=== PATIENT | male | born 1965 | race Caucasian/White ===

== ENCOUNTER 2016-11-24 06:46 | Emergency (ER) | payer SELFPAY ==
[~2016-11-24] VITALS: Ht 177.8 cm; Wt 79.0 kg
[~2016-11-24 06:46] MED LIST: AUGMENTIN500TAB PO; AUGMENTIN875TAB PO; BACTRIM DS1 TAB PO; CARAFATE PO; CELEBREX100 M1 PO; FLEXERIL PO; FLEXERIL5 MG PO; FLONASE NASAL50 MCG; GABAPENTIN300 M2 PO; GABAPENTIN800 MG PO; GLIPIZIDE5 MG PO; HYDROCHLOROT12.5 MG PO; LACTULOSE PO; LASIX 20 MG TAB20 MG PO; LEVAQUIN750 MG PO; LISINOPRIL20 M1 PO; LOVASTATIN10 M1 PO; MECLIZINE25 MG PO; METFORMIN500 M1 PO; MUCINEX600 MG PO; MUPIROCIN21; NAFTIN; NAPROXEN375 MG PO; OSENI PO; PERCOCET1 TA2 PO; PREDNISONE10 MG PO; PRILOSEC40 MG PO; ROPINIROLE1 MG PO; TESSALON PER100 MG PO; ZITHROMAX250 MG PO; ZOFRAN ODT4 MG PO; [UNRECOGNIZED DRUG - OTHER] PO
[2016-11-24] MEDS ORDERED: CELEBREX100 M1 PO (07:02)
[2016-11-24] MEDS ORDERED: FLEXERIL5 MG PO (07:03)
[2016-11-24 08:15] LABS: HEMATOCRIT 33.7 % (39.0-50.0); IMMATURE GRANULOCYTES 0.2 % (0.0-1.0); MEAN CELL VOLUME 94.7 fL CALC (80.0-100.0); MEAN CORPUSCULAR HGB 33.7 pG CALC (26.0-32.0); MEAN CORPUSCULAR HGB CONC 35.6 g/L CALC (32.0-36.0); NEUT# 3.57 thou/uL (1.82-7.42); RED BLOOD COUNT 3.56 mill/uL (4.70-6.10); RED CELL DISTRI WIDTH 14.1 % (11.5-15.5)
[2016-11-24 08:20] LABS: ALBUMIN 3.4 g/dL (3.2-5.0); ALKALINE PHOSPHATASE 237 u/l (38-126); ANION GAP 12 (6-22 (CALC)); BILIRUBIN, TOTAL 1.3 mg/dL (0.0-1.4); BUN 15 mg/dL (9-20); BUN/CREATININE RATIO 22 (12-20 (CALC)); CALCIUM 9.5 mg/dL (8.4-10.2); CARBON DIOXIDE 27 mmol/l (22-30); CHLORIDE 105 mmol/l (95-108); CREATININE 0.7 mg/dL (0.7-1.3); GFR > 60 ML/MIN (>=60 (CALC)); GFR FOR AFR.AMER. > 60 ML/MIN (>=60 (CALC)); GLUCOSE 206 mg/dL (75-110); POTASSIUM 3.7 mmol/l (3.5-5.1); SGOT/AST 238 u/l (17-59); SGPT/ALT 201 u/l (21-72); SODIUM 141 mmol/l (137-146); TOTAL PROTEIN 8.3 g/dL (6.3-8.2)
[2016-11-24 08:24] LABS: INTERNATIONAL NORMALIZED RATIO 1.1 RATIO (0.7-1.3)
[2016-11-24 08:32] LABS: MYOGLOBIN 33 ng/mL (0 - 121)
[2016-11-24] MEDS ORDERED: AUGMENTIN500TAB PO (09:59)
[2016-11-24 10:03] VITALS: BP 150/78
== END 2016-11-24 10:31 | disposition home or self-care (01) | DRG 603 ==
LOC: ED 06:46
PROVIDERS: Emergency Medicine
DX: L03.116 Cellulitis of left lower limb (principal); L03.115 Cellulitis of right lower limb

== ENCOUNTER 2017-01-13 11:04 | Inpatient (IN) | payer SELFPAY ==
[~2017-01-13] VITALS: Ht 177.8 cm; Wt 79.2 kg
[2017-01-13 11:56] LABS: HEMATOCRIT 34.2 % (39.0-50.0); IMMATURE GRANULOCYTES 0.4 % (0.0-1.0); MEAN CELL VOLUME 96.6 fL CALC (80.0-100.0); MEAN CORPUSCULAR HGB 33.9 pG CALC (26.0-32.0); MEAN CORPUSCULAR HGB CONC 35.1 g/L CALC (32.0-36.0); NEUT# 4.63 thou/uL (1.82-7.42); RED BLOOD COUNT 3.54 mill/uL (4.70-6.10); RED CELL DISTRI WIDTH 14.4 % (11.5-15.5)
[2017-01-13 12:06] LABS: ALBUMIN 3.1 g/dL (3.2-5.0); ALKALINE PHOSPHATASE 128 u/l (38-126); ANION GAP 10 (6-22 (CALC)); BUN 13 mg/dL (9-20); BUN/CREATININE RATIO 23 (12-20 (CALC)); CALCIUM 8.3 mg/dL (8.4-10.2); CARBON DIOXIDE 27 mmol/l (22-30); CHLORIDE 104 mmol/l (95-108); CREATININE 0.6 mg/dL (0.7-1.3); GFR > 60 ML/MIN (>=60 (CALC)); GFR FOR AFR.AMER. > 60 ML/MIN (>=60 (CALC)); GLUCOSE 180 mg/dL (75-110); POTASSIUM 4.4 mmol/l (3.5-5.1); SGOT/AST 179 u/l (17-59); SGPT/ALT 158 u/l (21-72); SODIUM 137 mmol/l (137-146); TOTAL PROTEIN 7.4 g/dL (6.3-8.2)
[2017-01-13 13:41] LABS: URINE BILIRUBIN - DIPSTICK NEGATIVE (NEGATIVE); URINE BLOOD DIPSTICK NEGATIVE (NEGATIVE); URINE CLARITY CLEAR; URINE COLOR YELLOW; URINE GLUCOSE - DIPSTICK NEGATIVE (NEGATIVE); URINE KETONE NEGATIVE (NEGATIVE); URINE LEUK ESTERASE NEGATIVE (NEGATIVE); URINE NITRITE - DIPSTICK NEGATIVE (Negative); URINE PH 5.5 (4.5-8.0); URINE PROTEIN - DIPSTICK NEGATIVE (NEG-TRACE)
[2017-01-13 16:00] VITALS: BP 132/68
[2017-01-13 20:25] VITALS: BP 145/65
[2017-01-14 00:42] VITALS: BP 122/67
[2017-01-14 04:35] VITALS: BP 115/61
[2017-01-14 06:10] LABS: HEMATOCRIT 31.8 % (39.0-50.0); HEMOGLOBIN 11.2 g/dl (14.0-18.0); IMMATURE GRANULOCYTES 0.4 % (0.0-1.0); MEAN CELL VOLUME 95.5 fL CALC (80.0-100.0); MEAN CORPUSCULAR HGB 33.6 pG CALC (26.0-32.0); MEAN CORPUSCULAR HGB CONC 35.2 g/L CALC (32.0-36.0); NEUT# 3.17 thou/uL (1.82-7.42); RED BLOOD COUNT 3.33 mill/uL (4.70-6.10); RED CELL DISTRI WIDTH 14.1 % (11.5-15.5)
[2017-01-14 06:31] LABS: ANION GAP 9 (6-22 (CALC)); BUN 10 mg/dL (9-20); BUN/CREATININE RATIO 19 (12-20 (CALC)); CALCIUM 8.1 mg/dL (8.4-10.2); CALCULATED LDLCHOLESTEROL 64 mg/dL (62-129 (CALC)); CARBON DIOXIDE 26 mmol/l (22-30); CHLORIDE 107 mmol/l (95-108); CHOLESTEROL HDL RATIO 3.2 (<4.4 (CALC)); CREATININE 0.6 mg/dL (0.7-1.3); GFR > 60 ML/MIN (>=60 (CALC)); GFR FOR AFR.AMER. > 60 ML/MIN (>=60 (CALC)); GLUCOSE 86 mg/dL (75-110); HDL CHOLESTEROL 37 mg/dL (>=40); MAGNESIUM 1.5 mg/dL (1.6-2.3); POTASSIUM 3.3 mmol/l (3.5-5.1); SODIUM 138 mmol/l (137-146); TOTAL CHOLESTEROL 118 mg/dl (0-199); TOTAL TRIGLYCERIDES 84 mg/dl (30-149); VLDL CHOLESTROL 17 mg/dl (8-62 (CALC))
[2017-01-14 08:54] VITALS: BP 125/75
[2017-01-14 16:32] VITALS: BP 114/66
[2017-01-14 19:40] VITALS: BP 108/64
[2017-01-15] VITALS (7 sets, daily range): BP systolic 101–121; BP diastolic 62–78
[2017-01-15 06:12] LABS: ANION GAP 9 (6-22 (CALC)); BUN 11 mg/dL (9-20); BUN/CREATININE RATIO 21 (12-20 (CALC)); CALCIUM 8.1 mg/dL (8.4-10.2); CARBON DIOXIDE 27 mmol/l (22-30); CHLORIDE 105 mmol/l (95-108); CREATININE 0.5 mg/dL (0.7-1.3); GFR > 60 ML/MIN (>=60 (CALC)); GFR FOR AFR.AMER. > 60 ML/MIN (>=60 (CALC)); GLUCOSE 129 mg/dL (75-110); MAGNESIUM 1.6 mg/dL (1.6-2.3); POTASSIUM 4.2 mmol/l (3.5-5.1); SODIUM 138 mmol/l (137-146)
[2017-01-16 03:50] VITALS: BP 109/70
[2017-01-16 07:42] VITALS: BP 87/52
[2017-01-16 07:57] VITALS: BP 97/56
[2017-01-16] MEDS ORDERED: MINOCYCLINE100 MG PO (10:30)
[2017-01-16] MEDS ORDERED: LEVAQUIN500 MG PO (10:30)
[2017-01-16 11:51] VITALS: BP 119/75
== END 2017-01-16 13:01 | disposition home or self-care (01) | DRG 638 ==
LOC: ENPENDDIS → ED 11:04 → ED-I 13:54 → ED 14:29 → MS2 14:30
PROVIDERS: Emergency Medicine; ADMIT Internal Medicine; ATTEND Internal Medicine
DX: E11.628 Type 2 diabetes mellitus with other skin complications (principal); L03.116 Cellulitis of left lower limb; L97.929 Non-pressure chronic ulcer of unspecified part of left lower leg with unspecified severity; E11.40 Type 2 diabetes mellitus with diabetic neuropathy, unspecified; I83.229 Varicose veins of left lower extremity with both ulcer of unspecified site and inflammation; I10 Essential (primary) hypertension; F17.210 Nicotine dependence, cigarettes, uncomplicated; B19.20 Unspecified viral hepatitis C without hepatic coma; E87.70 Fluid overload, unspecified; B96.5 Pseudomonas (aeruginosa) (mallei) (pseudomallei) as the cause of diseases classified elsewhere; Z79.84 Long term (current) use of oral hypoglycemic drugs
CPT/HCPCS: J3370

== ENCOUNTER 2017-02-12 11:05 | Inpatient (IN) | payer OTHER ==
[~2017-02-12] VITALS: Ht 177.8 cm; Wt 83.2 kg
[~2017-02-12 11:05] MED LIST changes: +LEVAQUIN500 MG PO; +MINOCYCLINE100 MG PO
[2017-02-12 11:38] LABS: HEMATOCRIT 33.5 % (39.0-50.0); HEMOGLOBIN 11.7 g/dl (14.0-18.0); IMMATURE GRANULOCYTES 0.4 % (0.0-1.0); MEAN CELL VOLUME 95.4 fL CALC (80.0-100.0); MEAN CORPUSCULAR HGB 33.3 pG CALC (26.0-32.0); MEAN CORPUSCULAR HGB CONC 34.9 g/L CALC (32.0-36.0); NEUT# 5.8 thou/uL (1.82-7.42); RED BLOOD COUNT 3.51 mill/uL (4.70-6.10); RED CELL DISTRI WIDTH 14.5 % (11.5-15.5)
[2017-02-12 11:55] LABS: ACT PARTIAL THROMBO TIME 33.1 SECONDS (20.0-32.5); INTERNATIONAL NORMALIZED RATIO 1.3 RATIO (0.7-1.3); PROTHROMBIN TIME 14.5 SECONDS (9.0-12.5)
[2017-02-12 11:56] LABS: ALBUMIN 3.1 g/dL (3.2-5.0); ALKALINE PHOSPHATASE 88 u/l (38-126); ANION GAP 12 (6-22 (CALC)); BUN 16 mg/dL (9-20); BUN/CREATININE RATIO 20 (12-20 (CALC)); CALCIUM 8.5 mg/dL (8.4-10.2); CARBON DIOXIDE 24 mmol/l (22-30); CHLORIDE 103 mmol/l (95-108); CREATININE 0.8 mg/dL (0.7-1.3); GFR > 60 ML/MIN (>=60 (CALC)); GFR FOR AFR.AMER. > 60 ML/MIN (>=60 (CALC)); GLUCOSE 155 mg/dL (75-110); SGOT/AST 153 u/l (17-59); SGPT/ALT 128 u/l (21-72); SODIUM 134 mmol/l (137-146); TOTAL PROTEIN 7.4 g/dL (6.3-8.2)
[2017-02-12 12:04] LABS: MYOGLOBIN 281 ng/mL (0 - 121)
[2017-02-12] MEDS ORDERED: OXYCODONE HCL10 MG PO (12:11)
[2017-02-12] MEDS ORDERED: COREG6.25 MG PO (12:12)
[2017-02-12] MEDS ORDERED: LASIX 40 MG TAB40 MG PO (12:13)
[2017-02-12] MEDS ORDERED: NEURONTIN400 MG PO (12:14)
[2017-02-12] MEDS ORDERED: LISINOPRIL10 M1 PO (12:14)
[2017-02-12] MEDS ORDERED: METFORMIN500 M2 PO (12:15)
[2017-02-12] MEDS ORDERED: ROPINIROLE0.5 MG PO (12:15)
[2017-02-12 14:52] LABS: URINE BILIRUBIN - DIPSTICK NEGATIVE (NEGATIVE); URINE BLOOD DIPSTICK NEGATIVE (NEGATIVE); URINE CLARITY CLEAR; URINE COLOR YELLOW; URINE GLUCOSE - DIPSTICK NEGATIVE (NEGATIVE); URINE KETONE NEGATIVE (NEGATIVE); URINE LEUK ESTERASE NEGATIVE (NEGATIVE); URINE NITRITE - DIPSTICK NEGATIVE (Negative); URINE PH 5.5 (4.5-8.0); URINE PROTEIN - DIPSTICK NEGATIVE (NEG-TRACE)
[2017-02-12 15:33] VITALS: BP 130/54
[2017-02-12 19:47] VITALS: BP 111/57
[2017-02-13 00:40] VITALS: BP 128/72
[2017-02-13 04:25] VITALS: BP 141/62
[2017-02-13 07:09] LABS: HEMATOCRIT 31.5 % (39.0-50.0); IMMATURE GRANULOCYTES 0.8 % (0.0-1.0); MEAN CELL VOLUME 96.3 fL CALC (80.0-100.0); MEAN CORPUSCULAR HGB 33.6 pG CALC (26.0-32.0); MEAN CORPUSCULAR HGB CONC 34.9 g/L CALC (32.0-36.0); NEUT# 6.53 thou/uL (1.82-7.42); RED BLOOD COUNT 3.27 mill/uL (4.70-6.10); RED CELL DISTRI WIDTH 14.6 % (11.5-15.5)
[2017-02-13 07:28] LABS: ALBUMIN 2.9 g/dL (3.2-5.0); ALKALINE PHOSPHATASE 104 u/l (38-126); ANION GAP 11 (6-22 (CALC)); BILIRUBIN, TOTAL 2.4 mg/dL (0.0-1.4); BUN 18 mg/dL (9-20); BUN/CREATININE RATIO 26 (12-20 (CALC)); CALCIUM 8.2 mg/dL (8.4-10.2); CARBON DIOXIDE 26 mmol/l (22-30); CHLORIDE 105 mmol/l (95-108); CREATININE 0.7 mg/dL (0.7-1.3); GFR > 60 ML/MIN (>=60 (CALC)); GFR FOR AFR.AMER. > 60 ML/MIN (>=60 (CALC)); GLUCOSE 151 mg/dL (75-110); POTASSIUM 3.5 mmol/l (3.5-5.1); SGOT/AST 105 u/l (17-59); SGPT/ALT 106 u/l (21-72); SODIUM 139 mmol/l (137-146)
[2017-02-13 07:36] LABS: INTERNATIONAL NORMALIZED RATIO 1.3 RATIO (0.7-1.3); PROTHROMBIN TIME 14.6 SECONDS (9.0-12.5)
[2017-02-13 08:25] VITALS: BP 139/64
[2017-02-13 11:14] VITALS: BP 129/68
[2017-02-13 14:25] VITALS: BP 119/68
[2017-02-13 19:30] VITALS: BP 127/65
[2017-02-14 00:15] VITALS: BP 121/66
[2017-02-14 04:45] VITALS: BP 119/69
[2017-02-14 05:52] LABS: HEMATOCRIT 32.8 % (39.0-50.0); HEMOGLOBIN 11.2 g/dl (14.0-18.0); IMMATURE GRANULOCYTES 0.8 % (0.0-1.0); MEAN CELL VOLUME 98.2 fL CALC (80.0-100.0); MEAN CORPUSCULAR HGB 33.5 pG CALC (26.0-32.0); MEAN CORPUSCULAR HGB CONC 34.1 g/L CALC (32.0-36.0); NEUT# 4.39 thou/uL (1.82-7.42); RED BLOOD COUNT 3.34 mill/uL (4.70-6.10); RED CELL DISTRI WIDTH 14.3 % (11.5-15.5)
[2017-02-14 06:14] LABS: ALBUMIN 2.8 g/dL (3.2-5.0); ALKALINE PHOSPHATASE 85 u/l (38-126); ANION GAP 11 (6-22 (CALC)); BILIRUBIN, TOTAL 1.5 mg/dL (0.0-1.4); BUN 16 mg/dL (9-20); BUN/CREATININE RATIO 22 (12-20 (CALC)); CARBON DIOXIDE 28 mmol/l (22-30); CHLORIDE 103 mmol/l (95-108); CREATININE 0.7 mg/dL (0.7-1.3); GFR > 60 ML/MIN (>=60 (CALC)); GFR FOR AFR.AMER. > 60 ML/MIN (>=60 (CALC)); GLUCOSE 139 mg/dL (75-110); MAGNESIUM 1.5 mg/dL (1.6-2.3); POTASSIUM 3.3 mmol/l (3.5-5.1); SGOT/AST 79 u/l (17-59); SGPT/ALT 93 u/l (21-72); SODIUM 139 mmol/l (137-146); TOTAL PROTEIN 7.2 g/dL (6.3-8.2)
[2017-02-14 08:05] VITALS: BP 127/68
[2017-02-14 10:26] VITALS: BP 102/53
[2017-02-14 14:48] VITALS: BP 102/53; BP 120/74
[2017-02-14 19:15] VITALS: BP 128/65
[2017-02-15] VITALS (7 sets, daily range): BP systolic 102–130; BP diastolic 51–70
[2017-02-15 05:26] LABS: HEMATOCRIT 30.6 % (39.0-50.0); HEMOGLOBIN 10.6 g/dl (14.0-18.0); IMMATURE GRANULOCYTES 1.3 % (0.0-1.0); MEAN CELL VOLUME 96.2 fL CALC (80.0-100.0); MEAN CORPUSCULAR HGB 33.3 pG CALC (26.0-32.0); MEAN CORPUSCULAR HGB CONC 34.6 g/L CALC (32.0-36.0); NEUT# 2.61 thou/uL (1.82-7.42); RED BLOOD COUNT 3.18 mill/uL (4.70-6.10)
[2017-02-15 05:37] LABS: ANION GAP 11 (6-22 (CALC)); BUN 14 mg/dL (9-20); BUN/CREATININE RATIO 21 (12-20 (CALC)); CALCIUM 7.8 mg/dL (8.4-10.2); CARBON DIOXIDE 27 mmol/l (22-30); CHLORIDE 101 mmol/l (95-108); CREATININE 0.7 mg/dL (0.7-1.3); GFR > 60 ML/MIN (>=60 (CALC)); GFR FOR AFR.AMER. > 60 ML/MIN (>=60 (CALC)); GLUCOSE 129 mg/dL (75-110); POTASSIUM 3.7 mmol/l (3.5-5.1); SODIUM 135 mmol/l (137-146)
[2017-02-16 00:50] VITALS: BP 116/57
[2017-02-16 03:05] VITALS: BP 106/49
[2017-02-16 08:13] VITALS: BP 113/64
[2017-02-16 11:02] VITALS: BP 117/68
[2017-02-16] MEDS ORDERED: LASIX 40 MG TAB40 MG PO (12:00)
[2017-02-16] MEDS ORDERED: DAPTOMYCIN500 MG IV (12:00)
[2017-02-16] MEDS ORDERED: ALDACTONE50 MG PO (12:00)
[2017-02-16] MEDS ORDERED: CIPROFLOXACIN250 MG PO (12:01)
[2017-02-16] MEDS ORDERED: METRONIDAZOL500 MG PO (12:01)
== END 2017-02-16 15:20 | disposition home health service (06) | DRG 602 ==
LOC: ENPENDDIS → ED 11:05 → ED-I 12:25 → ED 13:16 → MS2 13:17
PROVIDERS: Emergency Medicine; ADMIT Internal Medicine; ATTEND Internal Medicine
DX: L03.116 Cellulitis of left lower limb (principal); E43 Unspecified severe protein-calorie malnutrition; I50.33 Acute on chronic diastolic (congestive) heart failure; R18.8 Other ascites; E83.42 Hypomagnesemia; I11.0 Hypertensive heart disease with heart failure; L03.115 Cellulitis of right lower limb; G89.29 Other chronic pain; M54.9 Dorsalgia, unspecified; F17.210 Nicotine dependence, cigarettes, uncomplicated; I83.12 Varicose veins of left lower extremity with inflammation; I83.11 Varicose veins of right lower extremity with inflammation; E11.9 Type 2 diabetes mellitus without complications; B18.2 Chronic viral hepatitis C; I34.0 Nonrheumatic mitral (valve) insufficiency; Z68.26 Body mass index [BMI] 26.0-26.9, adult; Z79.84 Long term (current) use of oral hypoglycemic drugs
CPT/HCPCS: J1650; J3370

== ENCOUNTER 2017-04-23 20:55 | Emergency (ER) | payer OTHER ==
[~2017-04-23] VITALS: Ht 177.8 cm; Wt 77.0 kg
[~2017-04-23 20:55] MED LIST changes: +ALDACTONE50 MG PO; +CIPROFLOXACIN250 MG PO; +COREG6.25 MG PO; +DAPTOMYCIN500 MG IV; +LASIX 40 MG TAB40 MG PO; +LISINOPRIL10 M1 PO; +METFORMIN500 M2 PO; +METRONIDAZOL500 MG PO; +NEURONTIN400 MG PO; +OXYCODONE HCL10 MG PO; +ROPINIROLE0.5 MG PO
[2017-04-23] MEDS ORDERED: PERCOCET1 TA2 PO (23:23)
[2017-04-23] MEDS ORDERED: BACTRIM DS1 TAB PO (23:23)
[2017-04-24 00:45] VITALS: BP 132/64
== END 2017-04-24 00:45 | disposition home or self-care (01) | DRG 605 ==
LOC: ED 20:55
DX: S81.802A Unspecified open wound, left lower leg, initial encounter (principal); S81.801A Unspecified open wound, right lower leg, initial encounter; M79.604 Pain in right leg; M79.605 Pain in left leg

== ENCOUNTER 2017-05-04 10:20 | Emergency (ER) | payer OTHER ==
[~2017-05-04] VITALS: Ht 177.8 cm; Wt 79.0 kg
[2017-05-04 11:58] LABS: ALBUMIN 2.9 g/dL (3.2-5.0); ALKALINE PHOSPHATASE 251 u/l (38-126); ANION GAP 11 (6-22 (CALC)); BILIRUBIN, TOTAL 1.6 mg/dL (0.0-1.4); BUN 12 mg/dL (9-20); BUN/CREATININE RATIO 22 (12-20 (CALC)); CALCIUM 8.6 mg/dL (8.4-10.2); CARBON DIOXIDE 25 mmol/l (22-30); CHLORIDE 103 mmol/l (95-108); CREATININE 0.5 mg/dL (0.7-1.3); GFR > 60 ML/MIN (>=60 (CALC)); GFR FOR AFR.AMER. > 60 ML/MIN (>=60 (CALC)); GLUCOSE 256 mg/dL (75-110); POTASSIUM 3.7 mmol/l (3.5-5.1); SGOT/AST 248 u/l (17-59); SGPT/ALT 172 u/l (21-72); SODIUM 136 mmol/l (137-146); TOTAL PROTEIN 7.9 g/dL (6.3-8.2)
[2017-05-04 12:14] LABS: HEMATOCRIT 31.2 % (39.0-50.0); IMMATURE GRANULOCYTES 0.5 % (0.0-1.0); MEAN CELL VOLUME 95.1 fL CALC (80.0-100.0); MEAN CORPUSCULAR HGB 33.5 pG CALC (26.0-32.0); MEAN CORPUSCULAR HGB CONC 35.3 g/L CALC (32.0-36.0); NEUT# 2.51 thou/uL (1.82-7.42); RED BLOOD COUNT 3.28 mill/uL (4.70-6.10); RED CELL DISTRI WIDTH 14.2 % (11.5-15.5)
[2017-05-04] MEDS ORDERED: ULTRAM50 M1 PO (12:15)
[2017-05-04 12:22] VITALS: BP 126/81
== END 2017-05-04 12:42 | disposition home or self-care (01) | DRG 93 ==
LOC: ED 10:20
PROVIDERS: Emergency Medicine
DX: G89.29 Other chronic pain (principal); M79.604 Pain in right leg; M79.605 Pain in left leg; R22.43 Localized swelling, mass and lump, lower limb, bilateral

== ENCOUNTER 2017-05-10 23:05 | Emergency (ER) | payer OTHER ==
[~2017-05-10] VITALS: Ht 177.8 cm; Wt 79.5 kg
[~2017-05-10 23:05] MED LIST changes: +ULTRAM50 M1 PO
[2017-05-11 00:38] LABS: HEMATOCRIT 30.1 % (39.0-50.0); HEMOGLOBIN 10.6 g/dl (14.0-18.0); IMMATURE GRANULOCYTES 0.4 % (0.0-1.0); MEAN CELL VOLUME 95.6 fL CALC (80.0-100.0); MEAN CORPUSCULAR HGB 33.7 pG CALC (26.0-32.0); MEAN CORPUSCULAR HGB CONC 35.2 g/L CALC (32.0-36.0); NEUT# 3.08 thou/uL (1.82-7.42); RED BLOOD COUNT 3.15 mill/uL (4.70-6.10); RED CELL DISTRI WIDTH 14.5 % (11.5-15.5)
[2017-05-11 00:39] LABS: ALBUMIN 2.8 g/dL (3.2-5.0); ALKALINE PHOSPHATASE 186 u/l (38-126); ANION GAP 10 (6-22 (CALC)); BILIRUBIN, TOTAL 1.5 mg/dL (0.0-1.4); BUN 15 mg/dL (9-20); BUN/CREATININE RATIO 25 (12-20 (CALC)); CALCIUM 8.3 mg/dL (8.4-10.2); CARBON DIOXIDE 26 mmol/l (22-30); CHLORIDE 103 mmol/l (95-108); CREATININE 0.6 mg/dL (0.7-1.3); GFR > 60 ML/MIN (>=60 (CALC)); GFR FOR AFR.AMER. > 60 ML/MIN (>=60 (CALC)); GLUCOSE 220 mg/dL (75-110); POTASSIUM 4.4 mmol/l (3.5-5.1); SGOT/AST 247 u/l (17-59); SGPT/ALT 154 u/l (21-72); SODIUM 135 mmol/l (137-146); TOTAL PROTEIN 7.8 g/dL (6.3-8.2)
[2017-05-11] MEDS ORDERED: LORTAB 10-325 M1 TAB PO (01:04)
[2017-05-11 01:56] VITALS: BP 158/72
[2017-05-12] MEDS ORDERED: METFORMIN500 M2 PO (15:17)
[2017-05-12] MEDS ORDERED: GLUCOTROL10 MG PO (15:17)
[2017-05-12] MEDS ORDERED: NEURONTIN300 MG PO (15:18)
[2017-05-12] MEDS ORDERED: LISINOPRIL10 M1 PO (15:18)
[2017-05-12] MEDS ORDERED: OXYCODONE/ACETA1 TA8 (15:19)
== END 2017-05-11 01:54 | disposition home or self-care (01) | DRG 563 ==
LOC: ED 23:05
PROVIDERS: Emergency Medicine
DX: S93.602A Unspecified sprain of left foot, initial encounter (principal); L03.115 Cellulitis of right lower limb; I10 Essential (primary) hypertension; L03.116 Cellulitis of left lower limb; K21.9 Gastro-esophageal reflux disease without esophagitis; B19.20 Unspecified viral hepatitis C without hepatic coma; I87.8 Other specified disorders of veins; X58.XXXA Exposure to other specified factors, initial encounter

== ENCOUNTER 2017-05-12 12:49 | Inpatient (IN) | payer OTHER ==
[~2017-05-12] VITALS: Ht 177.8 cm; Wt 78.0 kg
[~2017-05-12 12:49] MED LIST changes: +LORTAB 10-325 M1 TAB PO
[2017-05-12 14:55] LABS: HEMATOCRIT 33.5 % (39.0-50.0); HEMOGLOBIN 11.7 g/dl (14.0-18.0); IMMATURE GRANULOCYTES 0.4 % (0.0-1.0); MEAN CELL VOLUME 95.2 fL CALC (80.0-100.0); MEAN CORPUSCULAR HGB 33.2 pG CALC (26.0-32.0); MEAN CORPUSCULAR HGB CONC 34.9 g/L CALC (32.0-36.0); NEUT# 2.8 thou/uL (1.82-7.42); RED BLOOD COUNT 3.52 mill/uL (4.70-6.10); RED CELL DISTRI WIDTH 14.3 % (11.5-15.5)
[2017-05-12 15:00] LABS: INTERNATIONAL NORMALIZED RATIO 1.1 RATIO (0.7-1.3); PROTHROMBIN TIME 12.5 SECONDS (9.0-12.5)
[2017-05-12 15:10] LABS: ALBUMIN 2.9 g/dL (3.2-5.0); ALKALINE PHOSPHATASE 133 u/l (38-126); ANION GAP 11 (6-22 (CALC)); BILIRUBIN, TOTAL 2.1 mg/dL (0.0-1.4); BUN 9 mg/dL (9-20); BUN/CREATININE RATIO 17 (12-20 (CALC)); CALCIUM 8.4 mg/dL (8.4-10.2); CARBON DIOXIDE 27 mmol/l (22-30); CHLORIDE 103 mmol/l (95-108); CREATININE 0.5 mg/dL (0.7-1.3); GFR > 60 ML/MIN (>=60 (CALC)); GFR FOR AFR.AMER. > 60 ML/MIN (>=60 (CALC)); GLUCOSE 168 mg/dL (75-110); POTASSIUM 4.1 mmol/l (3.5-5.1); SGOT/AST 250 u/l (17-59); SGPT/ALT 157 u/l (21-72); SODIUM 137 mmol/l (137-146); TOTAL PROTEIN 8.1 g/dL (6.3-8.2)
[2017-05-12] MEDS ORDERED: GLUCOTROL10 MG PO (15:17)
[2017-05-12] MEDS ORDERED: METFORMIN500 M2 PO (15:17)
[2017-05-12] MEDS ORDERED: NEURONTIN300 MG PO (15:18)
[2017-05-12] MEDS ORDERED: LISINOPRIL10 M1 PO (15:18)
[2017-05-12] MEDS ORDERED: OXYCODONE/ACETA1 TA8 (15:19)
[2017-05-12 15:22] LABS: MYOGLOBIN 115 ng/mL (0 - 121)
[2017-05-12 17:18] VITALS: BP 111/65
[2017-05-12 20:30] VITALS: BP 116/52
[2017-05-13 00:35] VITALS: BP 119/69
[2017-05-13 04:45] VITALS: BP 122/74
[2017-05-13 08:18] LABS: HEMOGLOBIN 10.8 g/dl (14.0-18.0); IMMATURE GRANULOCYTES 0.3 % (0.0-1.0); MEAN CELL VOLUME 99.4 fL CALC (80.0-100.0); MEAN CORPUSCULAR HGB 33.5 pG CALC (26.0-32.0); MEAN CORPUSCULAR HGB CONC 33.8 g/L CALC (32.0-36.0); NEUT# 4.1 thou/uL (1.82-7.42); RED BLOOD COUNT 3.22 mill/uL (4.70-6.10); RED CELL DISTRI WIDTH 14.6 % (11.5-15.5)
[2017-05-13 08:38] LABS: ANION GAP 10 (6-22 (CALC)); BUN 16 mg/dL (9-20); BUN/CREATININE RATIO 24 (12-20 (CALC)); CALCIUM 7.7 mg/dL (8.4-10.2); CARBON DIOXIDE 22 mmol/l (22-30); CHLORIDE 108 mmol/l (95-108); CREATININE 0.7 mg/dL (0.7-1.3); GFR > 60 ML/MIN (>=60 (CALC)); GFR FOR AFR.AMER. > 60 ML/MIN (>=60 (CALC)); GLUCOSE 123 mg/dL (75-110); POTASSIUM 4.1 mmol/l (3.5-5.1); SODIUM 136 mmol/l (137-146)
[2017-05-13 09:01] VITALS: BP 117/67
[2017-05-13 12:28] VITALS: BP 113/66
[2017-05-13 16:00] VITALS: BP 116/53
[2017-05-13 20:30] VITALS: BP 107/72
[2017-05-14] VITALS (7 sets, daily range): BP systolic 101–124; BP diastolic 51–75
[2017-05-14 07:10] LABS: HEMATOCRIT 29.3 % (39.0-50.0); HEMOGLOBIN 10.3 g/dl (14.0-18.0); IMMATURE GRANULOCYTES 0.5 % (0.0-1.0); MEAN CELL VOLUME 95.1 fL CALC (80.0-100.0); MEAN CORPUSCULAR HGB 33.4 pG CALC (26.0-32.0); MEAN CORPUSCULAR HGB CONC 35.2 g/L CALC (32.0-36.0); NEUT# 2.74 thou/uL (1.82-7.42); RED BLOOD COUNT 3.08 mill/uL (4.70-6.10); RED CELL DISTRI WIDTH 14.3 % (11.5-15.5)
[2017-05-14 07:28] LABS: ANION GAP 12 (6-22 (CALC)); BUN 16 mg/dL (9-20); BUN/CREATININE RATIO 25 (12-20 (CALC)); CALCIUM 7.7 mg/dL (8.4-10.2); CARBON DIOXIDE 23 mmol/l (22-30); CHLORIDE 108 mmol/l (95-108); CREATININE 0.6 mg/dL (0.7-1.3); GFR > 60 ML/MIN (>=60 (CALC)); GFR FOR AFR.AMER. > 60 ML/MIN (>=60 (CALC)); GLUCOSE 136 mg/dL (75-110); POTASSIUM 4.3 mmol/l (3.5-5.1); SODIUM 140 mmol/l (137-146)
[2017-05-14] MEDS ORDERED: METFORMIN HCL1000 MG PO (13:45)
[2017-05-14] MEDS ORDERED: CELECOXIB200 MG PO (13:49)
[2017-05-14] MEDS ORDERED: ROPINIROLE1 MG PO (13:50)
[2017-05-14] MEDS ORDERED: SPIRONOLACT50 M1 PO (13:52)
[2017-05-15 03:40] VITALS: BP 111/62
[2017-05-15 09:12] VITALS: BP 123/68
[2017-05-15 12:30] VITALS: BP 128/40
[2017-05-15 16:00] VITALS: BP 119/62
[2017-05-15 19:55] VITALS: BP 119/64
[2017-05-16 00:01] VITALS: BP 106/57
[2017-05-16 04:10] VITALS: BP 104/60
[2017-05-16 06:02] LABS: HEMATOCRIT 30.9 % (39.0-50.0); HEMOGLOBIN 10.7 g/dl (14.0-18.0); MEAN CELL VOLUME 97.5 fL CALC (80.0-100.0); MEAN CORPUSCULAR HGB 33.8 pG CALC (26.0-32.0); MEAN CORPUSCULAR HGB CONC 34.6 g/L CALC (32.0-36.0); NEUT# 2.5 thou/uL (1.82-7.42); RED BLOOD COUNT 3.17 mill/uL (4.70-6.10); RED CELL DISTRI WIDTH 14.2 % (11.5-15.5)
[2017-05-16 06:04] LABS: ALBUMIN 2.4 g/dL (3.2-5.0); ALKALINE PHOSPHATASE 156 u/l (38-126); ANION GAP 10 (6-22 (CALC)); BILIRUBIN, TOTAL 1.1 mg/dL (0.0-1.4); BUN 15 mg/dL (9-20); BUN/CREATININE RATIO 23 (12-20 (CALC)); CALCIUM 8.3 mg/dL (8.4-10.2); CARBON DIOXIDE 26 mmol/l (22-30); CHLORIDE 105 mmol/l (95-108); CREATININE 0.6 mg/dL (0.7-1.3); GFR > 60 ML/MIN (>=60 (CALC)); GFR FOR AFR.AMER. > 60 ML/MIN (>=60 (CALC)); GLUCOSE 165 mg/dL (75-110); POTASSIUM 4.8 mmol/l (3.5-5.1); SGOT/AST 165 u/l (17-59); SGPT/ALT 108 u/l (21-72); SODIUM 137 mmol/l (137-146); TOTAL PROTEIN 7.1 g/dL (6.3-8.2)
[2017-05-16 08:24] VITALS: BP 113/63
[2017-05-16] MEDS ORDERED: OXYCODONE/ACETA1 TA8 PO (12:22)
[2017-05-16] MEDS ORDERED: GABAPENTIN300 M2 PO (12:22)
[2017-05-16] MEDS ORDERED: BACTRIM DS1 TAB PO (12:23)
[2017-05-16 12:30] VITALS: BP 120/72
== END 2017-05-16 13:51 | disposition home or self-care (01) | DRG 300 ==
LOC: ED 12:49 → MS2 15:16
PROVIDERS: Emergency Medicine; Internal Medicine; Nurse Practitioner Family; ADMIT Internal Medicine; ATTEND Internal Medicine
DX: I83.228 Varicose veins of left lower extremity with both ulcer of other part of lower extremity and inflammation (principal); L97.821 Non-pressure chronic ulcer of other part of left lower leg limited to breakdown of skin; E11.42 Type 2 diabetes mellitus with diabetic polyneuropathy; L03.116 Cellulitis of left lower limb; L03.115 Cellulitis of right lower limb; I83.11 Varicose veins of right lower extremity with inflammation; B18.2 Chronic viral hepatitis C; I10 Essential (primary) hypertension; B96.89 Other specified bacterial agents as the cause of diseases classified elsewhere; F17.210 Nicotine dependence, cigarettes, uncomplicated; G25.81 Restless legs syndrome; Z79.84 Long term (current) use of oral hypoglycemic drugs
CPT/HCPCS: J0692; J3370

== ENCOUNTER 2017-06-18 19:28 | Emergency (ER) | payer OTHER ==
[~2017-06-18] VITALS: Ht 177.8 cm; Wt 78.0 kg
[~2017-06-18 19:28] MED LIST changes: +CELECOXIB200 MG PO; +GLUCOTROL10 MG PO; +METFORMIN HCL1000 MG PO; +NEURONTIN300 MG PO; +OXYCODONE/ACETA1 TA8; +OXYCODONE/ACETA1 TA8 PO; +SPIRONOLACT50 M1 PO
[2017-06-18 21:08] LABS: HEMATOCRIT 32.9 % (39.0-50.0); HEMOGLOBIN 11.6 g/dl (14.0-18.0); IMMATURE GRANULOCYTES 0.7 % (0.0-1.0); MEAN CELL VOLUME 95.1 fL CALC (80.0-100.0); MEAN CORPUSCULAR HGB 33.5 pG CALC (26.0-32.0); MEAN CORPUSCULAR HGB CONC 35.3 g/L CALC (32.0-36.0); NEUT# 2.36 thou/uL (1.82-7.42); RED BLOOD COUNT 3.46 mill/uL (4.70-6.10); RED CELL DISTRI WIDTH 14.1 % (11.5-15.5)
[2017-06-18 21:25] LABS: ALBUMIN 3.3 g/dL (3.2-5.0); ALKALINE PHOSPHATASE 201 u/l (38-126); ANION GAP 14 (6-22 (CALC)); BILIRUBIN, TOTAL 1.9 mg/dL (0.0-1.4); BUN 14 mg/dL (9-20); BUN/CREATININE RATIO 21 (12-20 (CALC)); CALCIUM 8.9 mg/dL (8.4-10.2); CARBON DIOXIDE 24 mmol/l (22-30); CHLORIDE 107 mmol/l (95-108); CREATININE 0.7 mg/dL (0.7-1.3); GFR > 60 ML/MIN (>=60 (CALC)); GFR FOR AFR.AMER. > 60 ML/MIN (>=60 (CALC)); GLUCOSE 218 mg/dL (75-110); POTASSIUM 4.3 mmol/l (3.5-5.1); SGOT/AST 214 u/l (17-59); SGPT/ALT 141 u/l (21-72); SODIUM 141 mmol/l (137-146); TOTAL PROTEIN 8.7 g/dL (6.3-8.2)
[2017-06-18 22:25] VITALS: BP 136/63
== END 2017-06-18 22:30 | disposition home or self-care (01) | DRG 603 ==
LOC: ED 19:28
PROVIDERS: Emergency Medicine
DX: L03.116 Cellulitis of left lower limb (principal); L03.115 Cellulitis of right lower limb; I11.0 Hypertensive heart disease with heart failure; I50.9 Heart failure, unspecified; E11.9 Type 2 diabetes mellitus without complications; K21.9 Gastro-esophageal reflux disease without esophagitis; I87.8 Other specified disorders of veins

== ENCOUNTER 2017-10-03 12:13 | Emergency (ER) | payer OTHER ==
[~2017-10-03] VITALS: Ht 177.8 cm; Wt 83.6 kg
[2017-10-03 13:51] LABS: HEMATOCRIT 34.9 % (39.0-50.0); IMMATURE GRANULOCYTES 0.8 % (0.0-1.0); MEAN CELL VOLUME 97.2 fL CALC (80.0-100.0); MEAN CORPUSCULAR HGB 33.4 pG CALC (26.0-32.0); MEAN CORPUSCULAR HGB CONC 34.4 g/L CALC (32.0-36.0); NEUT# 3.65 thou/uL (1.82-7.42); RED BLOOD COUNT 3.59 mill/uL (4.70-6.10); RED CELL DISTRI WIDTH 14.8 % (11.5-15.5)
[2017-10-03 14:42] LABS: ANION GAP 13 (6-22 (CALC)); BUN 13 mg/dL (9-20); BUN/CREATININE RATIO 20 (12-20 (CALC)); CARBON DIOXIDE 25 mmol/l (22-30); CHLORIDE 103 mmol/l (95-108); CREATININE 0.6 mg/dL (0.7-1.3); GFR > 60 ML/MIN (>=60 (CALC)); GFR FOR AFR.AMER. > 60 ML/MIN (>=60 (CALC)); POTASSIUM 4.1 mmol/l (3.5-5.1); SODIUM 138 mmol/l (137-146)
[2017-10-03] MEDS ORDERED: BACTRIM DS1 TAB PO (14:54)
[2017-10-03] MEDS ORDERED: TRAMADOL HYDROC50 MG PO (14:58)
== END 2017-10-03 15:07 | disposition home or self-care (01) | DRG 301 ==
LOC: ED 12:13
PROVIDERS: Family Medicine
DX: I87.2 Venous insufficiency (chronic) (peripheral) (principal); I11.0 Hypertensive heart disease with heart failure; I50.9 Heart failure, unspecified; E11.9 Type 2 diabetes mellitus without complications; K21.9 Gastro-esophageal reflux disease without esophagitis

== ENCOUNTER 2017-10-07 22:50 | Emergency (ER) | payer OTHER ==
[~2017-10-07] VITALS: Ht 177.8 cm; Wt 80.9 kg
[~2017-10-07 22:50] MED LIST changes: +TRAMADOL HYDROC50 MG PO
[2017-10-07] MEDS ORDERED: FLEXERIL PO (23:06)
[2017-10-07] MEDS ORDERED: FLONASE AL50 MCG/ACT NAB (23:06)
[2017-10-07] MEDS ORDERED: [UNRECOGNIZED DRUG - SUPPLY] SC (23:10)
[2017-10-07] MEDS ORDERED: OMEPRAZOLE10 MG PO (23:11)
[2017-10-07] MEDS ORDERED: LACTULOSE PO (23:12)
[2017-10-08 00:03] LABS: HEMATOCRIT 33.8 % (39.0-50.0); HEMOGLOBIN 11.8 g/dl (14.0-18.0); IMMATURE GRANULOCYTES 0.5 % (0.0-1.0); MEAN CELL VOLUME 96.3 fL CALC (80.0-100.0); MEAN CORPUSCULAR HGB 33.6 pG CALC (26.0-32.0); MEAN CORPUSCULAR HGB CONC 34.9 g/L CALC (32.0-36.0); NEUT# 2.5 thou/uL (1.82-7.42); RED BLOOD COUNT 3.51 mill/uL (4.70-6.10); RED CELL DISTRI WIDTH 15.1 % (11.5-15.5)
[2017-10-08 00:13] LABS: ALBUMIN 3.1 g/dL (3.2-5.0); ALKALINE PHOSPHATASE 165 u/l (38-126); ANION GAP 14 (6-22 (CALC)); BILIRUBIN, TOTAL 1.5 mg/dL (0.0-1.4); BUN 19 mg/dL (9-20); BUN/CREATININE RATIO 28 (12-20 (CALC)); CARBON DIOXIDE 24 mmol/l (22-30); CHLORIDE 106 mmol/l (95-108); CREATININE 0.7 mg/dL (0.7-1.3); GFR > 60 ML/MIN (>=60 (CALC)); GFR FOR AFR.AMER. > 60 ML/MIN (>=60 (CALC)); POTASSIUM 4.5 mmol/l (3.5-5.1); SGOT/AST 234 u/l (17-59); SGPT/ALT 151 u/l (21-72); SODIUM 138 mmol/l (137-146); TOTAL PROTEIN 7.8 g/dL (6.3-8.2)
[2017-10-08 01:14] VITALS: BP 138/71
== END 2017-10-08 01:14 | disposition home or self-care (01) | DRG 638 ==
LOC: ED 22:50
PROVIDERS: Emergency Medicine
DX: E11.628 Type 2 diabetes mellitus with other skin complications (principal); L03.116 Cellulitis of left lower limb; L03.115 Cellulitis of right lower limb; I11.0 Hypertensive heart disease with heart failure; I50.9 Heart failure, unspecified; K21.9 Gastro-esophageal reflux disease without esophagitis

== ENCOUNTER 2018-02-11 21:41 | Emergency (ER) | payer OTHER ==
[~2018-02-11] VITALS: Ht 177.8 cm; Wt 81.3 kg
[~2018-02-11 21:41] MED LIST changes: +FLONASE AL50 MCG/ACT NAB; +OMEPRAZOLE10 MG PO; +[UNRECOGNIZED DRUG - SUPPLY] SC
[2018-02-11] MEDS ORDERED: KEFLEX500 M1 PO (22:49)
[2018-02-11 23:12] VITALS: BP 129/67
== END 2018-02-11 23:12 | disposition home or self-care (01) | DRG 605 ==
LOC: ED 21:41
PROC: 0HQFXZZ Repair Right Hand Skin, External Approach (ICD-10-PCS; principal; 2018-02-11)
DX: S61.210A Laceration without foreign body of right index finger without damage to nail, initial encounter (principal); S60.311A Abrasion of right thumb, initial encounter; S60.412A Abrasion of right middle finger, initial encounter; K21.9 Gastro-esophageal reflux disease without esophagitis; E11.9 Type 2 diabetes mellitus without complications; I11.0 Hypertensive heart disease with heart failure; I50.9 Heart failure, unspecified; B19.20 Unspecified viral hepatitis C without hepatic coma; W31.2XXA Contact with powered woodworking and forming machines, initial encounter; Y93.89 Activity, other specified; Y92.009 Unspecified place in unspecified non-institutional (private) residence as the place of occurrence of the external cause

== ENCOUNTER 2018-02-16 20:30 | Emergency (ER) | payer OTHER ==
[~2018-02-16] VITALS: Ht 177.8 cm; Wt 79.5 kg
[~2018-02-16 20:30] MED LIST changes: +KEFLEX500 M1 PO
[2018-02-16 21:51] LABS: HEMATOCRIT 30.9 % (39.0-50.0); HEMOGLOBIN 10.5 g/dl (14.0-18.0); IMMATURE GRANULOCYTES 0.4 % (0.0-1.0); MEAN CELL VOLUME 97.2 fL CALC (80.0-100.0); NEUT# 4.29 thou/uL (1.82-7.42); RED BLOOD COUNT 3.18 mill/uL (4.70-6.10); RED CELL DISTRI WIDTH 15.7 % (11.5-15.5)
[2018-02-16 22:13] LABS: ALBUMIN 2.7 g/dL (3.2-5.0); ALKALINE PHOSPHATASE 189 u/l (38-126); ANION GAP 10 (6-22 (CALC)); BILIRUBIN, TOTAL 1.3 mg/dL (0.0-1.4); BUN 15 mg/dL (9-20); BUN/CREATININE RATIO 23 (12-20 (CALC)); CARBON DIOXIDE 21 mmol/l (22-30); CHLORIDE 107 mmol/l (95-108); CREATININE 0.6 mg/dL (0.7-1.3); GFR > 60 ML/MIN (>=60 (CALC)); GFR FOR AFR.AMER. > 60 ML/MIN (>=60 (CALC)); POTASSIUM 4.2 mmol/l (3.5-5.1); SGOT/AST 199 u/l (17-59); SGPT/ALT 113 u/l (21-72); SODIUM 133 mmol/l (137-146); TOTAL PROTEIN 8.4 g/dL (6.3-8.2)
[2018-02-16 22:24] LABS: MYOGLOBIN 23 ng/mL (0 - 121)
[2018-02-16 23:31] LABS: URINE BILIRUBIN - DIPSTICK NEGATIVE (NEGATIVE); URINE BLOOD DIPSTICK NEGATIVE (NEGATIVE); URINE CLARITY CLEAR; URINE COLOR YELLOW; URINE GLUCOSE - DIPSTICK 100 mg/dL (NEGATIVE); URINE KETONE NEGATIVE (NEGATIVE); URINE LEUK ESTERASE NEGATIVE (NEGATIVE); URINE NITRITE - DIPSTICK NEGATIVE (Negative); URINE PROTEIN - DIPSTICK NEGATIVE (NEG-TRACE); URINE SPECIFIC GRAVITY 1.015; URINE UROBILINOGEN - DIPSTICK 0.2 E.U./dL (0.2)
[2018-02-17] MEDS ORDERED: AMOX/K CLAV875 M1 PO (01:36)
[2018-02-17 02:07] VITALS: BP 117/57
== END 2018-02-17 02:12 | disposition home or self-care (01) | DRG 313 ==
LOC: ED 20:30
PROVIDERS: Emergency Medicine
DX: R07.89 Other chest pain (principal); T81.4XXA Infection following a procedure, initial encounter; S61.210D Laceration without foreign body of right index finger without damage to nail, subsequent encounter; E11.9 Type 2 diabetes mellitus without complications

== ENCOUNTER 2018-03-20 20:10 | Emergency (ER) | payer OTHER ==
[~2018-03-20] VITALS: Ht 177.8 cm; Wt 82.0 kg
[~2018-03-20 20:10] MED LIST changes: +AMITRIPTYLIN25 MG PO; +AMOX/K CLAV875 M1 PO; +BENADRYL 25MG C25 MG PO; +CIPROFLOXACN500 MG PO; +FERROUS FUM324 MG PO; +FOLIC ACID1 MG PO; +FUROSEMIDE40 MG PO; +GABAPENTIN100 MG PO; +LANTUS100 UNIT/M SC; +NEURONTIN600 MG PO; +NITROSTAT0.3 MG SL; +OXYIR5 MG PO; +TRAMADOL HCL50 MG PO
[2018-03-20 21:05] LABS: IMMATURE GRANULOCYTES 1.4 % (0.0-5.0); MEAN CELL VOLUME 98.9 fL CALC (80.0-100.0); MEAN CORPUSCULAR HGB 33.9 pG CALC (26.0-32.0); MEAN CORPUSCULAR HGB CONC 34.3 g/L CALC (32.0-36.0); NEUT# 3.13 thou/uL (1.82-7.42); RED BLOOD COUNT 3.48 mill/uL (4.70-6.10); RED CELL DISTRI WIDTH 15.6 % (11.5-15.5)
[2018-03-20 21:19] LABS: HEMATOCRIT 34.4 % (39.0-50.0); HEMOGLOBIN 11.8 g/dl (14.0-18.0)
[2018-03-20 21:23] LABS: ALBUMIN 2.9 g/dL (3.2-5.0); AMYLASE 44 u/l (30-110); ANION GAP 10 (6-22 (CALC)); BILIRUBIN, TOTAL 1.2 mg/dL (0.0-1.4); BUN 9 mg/dL (9-20); BUN/CREATININE RATIO 18 (12-20 (CALC)); CARBON DIOXIDE 24 mmol/l (22-30); CHLORIDE 109 mmol/l (95-108); CREATININE 0.5 mg/dL (0.7-1.3); GFR > 60 ML/MIN (>=60 (CALC)); GFR FOR AFR.AMER. > 60 ML/MIN (>=60 (CALC)); LIPASE 269 u/l (23-300); POTASSIUM 3.7 mmol/l (3.5-5.1); SGOT/AST 162 u/l (17-59); SGPT/ALT 89 u/l (21-72); SODIUM 139 mmol/l (137-146)
[2018-03-20 21:26] LABS: ALKALINE PHOSPHATASE 283 u/l (38-126)
[2018-03-20 22:01] LABS: URINE BILIRUBIN - DIPSTICK NEGATIVE (NEGATIVE); URINE BLOOD DIPSTICK NEGATIVE (NEGATIVE); URINE COLOR YELLOW; URINE GLUCOSE - DIPSTICK >=1000 mg/dL (NEGATIVE); URINE KETONE NEGATIVE (NEGATIVE); URINE LEUK ESTERASE NEGATIVE (NEGATIVE); URINE NITRITE - DIPSTICK NEGATIVE (Negative); URINE PROTEIN - DIPSTICK NEGATIVE (NEG-TRACE); URINE SPECIFIC GRAVITY 1.015
[2018-03-20 22:03] LABS: URINE CLARITY CLEAR
[2018-03-21 01:11] VITALS: BP 151/72
== END 2018-03-21 01:14 | disposition short-term general hospital (02) ==
LOC: ED 20:10
PROVIDERS: Emergency Medicine
DX: K74.60 Unspecified cirrhosis of liver (principal); R18.8 Other ascites; K76.6 Portal hypertension; B19.20 Unspecified viral hepatitis C without hepatic coma; D61.818 Other pancytopenia; E11.9 Type 2 diabetes mellitus without complications; I11.0 Hypertensive heart disease with heart failure; I50.9 Heart failure, unspecified; J18.9 Pneumonia, unspecified organism

== ENCOUNTER 2018-03-29 06:23 | Emergency (ER) | payer OTHER ==
[~2018-03-29] VITALS: Ht 177.8 cm; Wt 80.9 kg
[2018-03-29 07:35] LABS: HEMOGLOBIN 9.9 g/dl (14.0-18.0); IMMATURE GRANULOCYTES 0.6 % (0.0-5.0); MEAN CELL VOLUME 95.6 fL CALC (80.0-100.0); MEAN CORPUSCULAR HGB 33.6 pG CALC (26.0-32.0); MEAN CORPUSCULAR HGB CONC 35.1 g/L CALC (32.0-36.0); NEUT# 2.04 thou/uL (1.82-7.42); RED BLOOD COUNT 2.95 mill/uL (4.70-6.10); RED CELL DISTRI WIDTH 15.1 % (11.5-15.5)
[2018-03-29 07:52] LABS: HEMATOCRIT 28.2 % (39.0-50.0)
[2018-03-29 07:53] LABS: ALBUMIN 2.5 g/dL (3.2-5.0); ALKALINE PHOSPHATASE 119 u/l (38-126); ANION GAP 14 (6-22 (CALC)); BILIRUBIN, TOTAL 2.2 mg/dL (0.0-1.4); BUN 17 mg/dL (9-20); BUN/CREATININE RATIO 29 (12-20 (CALC)); CARBON DIOXIDE 21 mmol/l (22-30); CHLORIDE 106 mmol/l (95-108); CREATININE 0.6 mg/dL (0.7-1.3); GFR > 60 ML/MIN (>=60 (CALC)); GFR FOR AFR.AMER. > 60 ML/MIN (>=60 (CALC)); POTASSIUM 4.2 mmol/l (3.5-5.1); SGOT/AST 117 u/l (17-59); SGPT/ALT 68 u/l (21-72); SODIUM 138 mmol/l (137-146); TOTAL PROTEIN 7.7 g/dL (6.3-8.2)
[2018-03-29 11:36] LABS: URINE BILIRUBIN - DIPSTICK NEGATIVE (NEGATIVE); URINE BLOOD DIPSTICK NEGATIVE (NEGATIVE); URINE COLOR YELLOW; URINE GLUCOSE - DIPSTICK 100 mg/dL (NEGATIVE); URINE KETONE NEGATIVE (NEGATIVE); URINE LEUK ESTERASE NEGATIVE (NEGATIVE); URINE NITRITE - DIPSTICK NEGATIVE (Negative); URINE PROTEIN - DIPSTICK TRACE mg/dL (NEG-TRACE); URINE SPECIFIC GRAVITY 1.015
[2018-03-29 11:38] LABS: URINE CLARITY CLEAR
[2018-03-29 11:52] LABS: BARBITURATES NEGATIVE (NEGATIVE); COCAINE NEGATIVE (NEGATIVE); METHADONE NEGATIVE (NEGATIVE); TETRAHYDROCANNABIONOL POSITIVE (NEGATIVE); TRICYLIC ANTIDEPRESSANTS POSITIVE (NEGATIVE)
[2018-03-29 11:53] LABS: OXCYCODONE NEGATIVE (NEGATIVE)
[2018-03-29] MEDS ORDERED: ONDANSETRON4 MG PO (12:13)
[2018-03-29 12:25] VITALS: BP 150/76
== END 2018-03-29 12:30 | disposition home or self-care (01) ==
LOC: ED 06:23
PROVIDERS: Emergency Medicine
DX: R11.0 Nausea (principal); R18.8 Other ascites; R60.0 Localized edema; E11.9 Type 2 diabetes mellitus without complications; Z79.4 Long term (current) use of insulin; I10 Essential (primary) hypertension; B19.20 Unspecified viral hepatitis C without hepatic coma
CPT/HCPCS: Q9967

== ENCOUNTER 2018-04-04 22:05 | Emergency (ER) | payer OTHER ==
[~2018-04-04] VITALS: Ht 177.8 cm; Wt 81.8 kg
[~2018-04-04 22:05] MED LIST changes: +ONDANSETRON4 MG PO
[2018-04-04 23:07] LABS: HEMATOCRIT 27.9 % (39.0-50.0); HEMOGLOBIN 9.9 g/dl (14.0-18.0); IMMATURE GRANULOCYTES 0.5 % (0.0-5.0); MEAN CELL VOLUME 95.5 fL CALC (80.0-100.0); MEAN CORPUSCULAR HGB 33.9 pG CALC (26.0-32.0); MEAN CORPUSCULAR HGB CONC 35.5 g/L CALC (32.0-36.0); NEUT# 4.98 thou/uL (1.82-7.42); RED BLOOD COUNT 2.92 mill/uL (4.70-6.10); RED CELL DISTRI WIDTH 15.1 % (11.5-15.5)
[2018-04-04 23:18] LABS: INFLUENZA A NONE DETECTED (NONE DETECT); INFLUENZA B NONE DETECTED (NONE DETECT)
[2018-04-04 23:20] LABS: ALBUMIN 2.3 g/dL (3.2-5.0); ALKALINE PHOSPHATASE 166 u/l (38-126); ANION GAP 12 (6-22 (CALC)); BILIRUBIN, TOTAL 1.7 mg/dL (0.0-1.4); BUN 10 mg/dL (9-20); BUN/CREATININE RATIO 17 (12-20 (CALC)); CARBON DIOXIDE 24 mmol/l (22-30); CHLORIDE 103 mmol/l (95-108); CREATININE 0.6 mg/dL (0.7-1.3); GFR > 60 ML/MIN (>=60 (CALC)); GFR FOR AFR.AMER. > 60 ML/MIN (>=60 (CALC)); LIPASE 282 u/l (23-300); POTASSIUM 3.8 mmol/l (3.5-5.1); SGOT/AST 88 u/l (17-59); SGPT/ALT 65 u/l (21-72); SODIUM 135 mmol/l (137-146); TOTAL PROTEIN 7.3 g/dL (6.3-8.2)
[2018-04-05 02:45] VITALS: BP 103/54
== END 2018-04-05 02:40 | disposition short-term general hospital (02) ==
LOC: ED 22:05
PROVIDERS: Emergency Medicine
DX: R50.9 Fever, unspecified (principal); R10.13 Epigastric pain; L03.116 Cellulitis of left lower limb; L03.115 Cellulitis of right lower limb; K74.60 Unspecified cirrhosis of liver; B19.20 Unspecified viral hepatitis C without hepatic coma; R18.8 Other ascites; I87.8 Other specified disorders of veins; L97.329 Non-pressure chronic ulcer of left ankle with unspecified severity; L97.319 Non-pressure chronic ulcer of right ankle with unspecified severity; E11.9 Type 2 diabetes mellitus without complications; K21.9 Gastro-esophageal reflux disease without esophagitis; I11.0 Hypertensive heart disease with heart failure; I50.9 Heart failure, unspecified; D64.9 Anemia, unspecified; D69.59 Other secondary thrombocytopenia; M79.605 Pain in left leg; M79.604 Pain in right leg; M79.89 Other specified soft tissue disorders
CPT/HCPCS: Q9967

== ENCOUNTER 2018-06-07 07:57 | Inpatient (IN) | payer OTHER ==
[~2018-06-07] VITALS: Ht 177.8 cm; Wt 83.0 kg
--- NOTE | 2018-06-07 08:05 | NUR ---
PT TRIAGED, TO TX ROOM VIA WC.
--- NOTE | 2018-06-07 08:16 | NUR ---
ASSISTED DR MARRUFO WITH DRESSING REMOVAL TO BILATERAL LOWER EXTREMETIES. WOUNDS DOCUMENTED. COPIOUS WEEPING FROM ULCERATIVE WOUNDS, 3+ EDEMA BILATERALLY
[2018-06-07 08:55] LABS: HEMATOCRIT 27.1 % (39.0-50.0); HEMOGLOBIN 9.2 g/dl (14.0-18.0); MEAN CORPUSCULAR HGB 34.5 pG CALC (26.0-32.0); MEAN CORPUSCULAR HGB CONC 33.9 g/L CALC (32.0-36.0); NEUT# 4.26 thou/uL (1.82-7.42); RED BLOOD COUNT 2.67 mill/uL (4.70-6.10); RED CELL DISTRI WIDTH 15.9 % (11.5-15.5)
--- NOTE | 2018-06-07 09:06 | NUR ---
PATIENT REQUESTING PAIN MEDICATION FOR PAIN 10/10 TO BILATERAL LOWER EXTERMITIES. INFORMED.
[2018-06-07 09:07] LABS: ALBUMIN 2.4 g/dL (3.2-5.0); ALKALINE PHOSPHATASE 140 u/l (38-126); ANION GAP 8 (6-22 (CALC)); BILIRUBIN, TOTAL 1.7 mg/dL (0.0-1.4); BUN 10 mg/dL (9-20); BUN/CREATININE RATIO 16 (12-20 (CALC)); CARBON DIOXIDE 24 mmol/l (22-30); CHLORIDE 106 mmol/l (95-108); CREATININE 0.6 mg/dL (0.7-1.3); GFR > 60 ML/MIN (>=60 (CALC)); GFR FOR AFR.AMER. > 60 ML/MIN (>=60 (CALC)); LIPASE 119 u/l (23-300); POTASSIUM 3.9 mmol/l (3.5-5.1); SGOT/AST 64 u/l (17-59); SODIUM 134 mmol/l (137-146); TOTAL PROTEIN 7.1 g/dL (6.3-8.2)
[2018-06-07 09:17] LABS: MEAN CELL VOLUME 101.5 fL CALC (80.0-100.0)
--- NOTE | 2018-06-07 09:30 | NUR ---
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 INFORMED.
--- NOTE | 2018-06-07 09:42 | NUR ---
PATIENT MEDICATED WITH 4 MG OF ZOFRAN AND 4 MG OF MORPHINE SLOW IV PUSH FOR CONTINUED BILATERAL LOWER EXTERMITY PAIN.
--- NOTE | 2018-06-07 10:21 | NUR ---
REPORT GIVEN TO CASSANDRA ELENA.
--- NOTE | 2018-06-07 10:30 | NUR ---
LAB AT BEDSIDE ATTEMPT TO COLLECT SECOND LACTIC ACID.
--- NOTE | 2018-06-07 10:34 | NUR ---
PATIENT REPORTS NO CHANGE IN PAIN LEVEL.
--- NOTE | 2018-06-07 10:43 | NUR ---
PATIENT TRANSPORTED TO [facility] WITH TELE MONITOR IN PLACE, IV FLUIIDS TO CONTINUE INFUSING ON [facility]. TRANSPORTED VIA STRETCHER. CARE RELINQUISHED TO CASSANDRA ELENA.
--- NOTE | 2018-06-07 10:45 | NUR ---
PT ADMITTED TO MED SURG ROOM 288 VIA STRECTHER FROM ER. PT STOOD OFF STRECTHER ONTO STANDING SCALE THEN INTO BED WITH MOD ASSIST, PT ALERT AND OREINTED, WITH TELE BOX [id number] ORIENTED TO ROOM AND UNIT, ADMISSION ASSESSMENT COMPLETED, PT STATES HE WAS AT [facility] IN [place] AT THE FIRST OF THIS MONTH FOR SAME KIND OF PROBLEMS; PAIN AND "THEY TOOK SOME FLUID OFF MY BELLY A FEW TIMES TOO" PT POOR HISTORIAN AND DETAILS ARE AT TIMES CONTRADICTING, SO HISTORY IS TO BEST OF THIS NURSES ABILITY. LUNGS CLEAR DIMINSHED WITH NO SOB OR DISTRESS NOTED, ABD SLIGHTLY DISTENDED WITH SMALL UMBILICAL HERNIA NOTED, BS ACTIVE, PT STATES LAST BM YESTERDAY, NORMAL FORMED AND BROWN. PT HAS BILATERAL CHRONIC LOWER EXTREMITY EDEMA WITH OPEN AREAS AND WEEPING OF SEROUS FLUID; SKIN IS ELEPHANT LIKE WITH SOME SMALL BLISTERS NOTED, PHOTOS OBTAINED AND PLACED ON CHART; WILL ADDRESS WOUNDS ON ROUNDS WITH PHYSICIAN. PPPB, PADS UNDER LEGS TO ACCOMADATE WEEPING. PT UNABLE TO RECALL DRESSING CHANGES THAT WERE ORDERED. PT HAS SIGNIFICANT HISTORY INCLUDING HEP C, CIRRHOSIS, DIABETES, CHF AND HTN. ORIENTED TO ROOM AND UNIT, CALL FONTANA WITHIN REACH, PT REQUESTING BENADRYL AND FOOD AND MORE PAIN MEDICATION, EDUCATED REGARDING ADMISSION PROCESS AND NEED FOR MD ORDERS, PT VERBALIZES UNDERSTANDING, WILL CONTINUE TO MONITOR.
--- NOTE | 2018-06-07 10:46 | NUR ---
S: BRIANNE ESTRADA is a 53 M who presents with foot injury/pain. He has a history of DM, GERD, HTN,BACK, HERNIA, +TOB, CHF, LEG WOUND CELLULITIS, SEASONAL ALLERGY NOSE BLEED, HEP C. All medications in patient's chart were reviewed. O: VS: BP 1331/70, P 84, RR 18,T 99.2 W 82.7 kg, HT 27.5 cm, Scr= 0.6,CrCl= 100 ml/min A: Blood culture is pending. P: Patient is on ZOSYN 3.375 GM IV Q6H. Vancomycin ordered for pharmacy to dose. Start Vancomycin 1 GM IV Q8H. Vancomycin trough is drawn before the 4th dose on 06/08/18 AT 0930. Vancomycin goal trough is between 10-15 mcg/ml. Pharmacy will follow and or advise on antibiotics use as needed.
--- NOTE | 2018-06-07 11:50 | NUR ---
ATE 100% OF LUNCH, TOLERATED WELL, IVF INFUSING INTO LEFT FA SITE W/O INCIDENT. CALL FONTANA WITHIN REACH. OFFERS NO NEW COMPLAINTS, COMFORT MEASURES PROVIDED.
--- NOTE | 2018-06-07 12:00 | NUR ---
ATE 100 5 OF LUNCH, TOLERATED WELL, IVF INFUSING INTO LAEFT FA SITE W/O INCIDENT. CALL FONTANA WITHIN REACH
[2018-06-07 12:03] VITALS: BP 117/65
--- NOTE | 2018-06-07 13:11 | NUR ---
PT REQUESTING SECOND TRAY, EDUCATED REGARDING DIABETIC DIET AND CALORIE RESTRICTION, VERBALIZES UNDERSTANDING.
--- NOTE | 2018-06-07 15:07 | NUR ---
PT RESTING IN BED, OFFERS NO NEW COMPLAINTS, CONTINUES TO COMPLAIN OF LEG PAIN ALONG WITH ITCHING IN DR.ZELEDON DRAGAN AWARE.
--- NOTE | 2018-06-07 15:29 | NUR ---
FOOT CRADLE PLACED ON BED TO RELEIVE PRESSURE OF BLANKETS ON LEGS.
[2018-06-07 17:32] VITALS: BP 120/71
--- NOTE | 2018-06-07 17:54 | NUR ---
PT RESTING IN BED, FOOT CRADLE PLACED EARLIER. SET UP ASSIST PROVIDED FOR PM MEAL. IN TO SEE PATIENT EARLIER PLAN OF CARE DISCUSSED INCLDUING IV ABT ETC. CALL FONTANA WITHIN REACH, WILL CONTINUE TO MONITOR.
--- NOTE | 2018-06-07 19:30 | NUR ---
PT SITTING UP IN BED AWAKE. PT IS ALERT AND ORIENTED X3. SHIFT ASSESSMENT COMPLETED AT THIS TIME. IV PATENT X1. PT ASSITED TO BSC AND THEN BACK TO BED. PT MAXIMUM ASSISTANCE. PADS CHANTGED TO BED FOR BILAT LOW EXT DRAINAGE. CRADLE ON BED AT BLE. PT HAS BEATRICE TARIQ AT BEDSIDE. COUNSLED PT ON DIABETES AND QUANTITY OF SUGAR AND WITH UNCONTROLLED DM PT WILL NOT HAVE PROPER WOUND HEALING. PT VERBALIZED UNDERSTNADING. CALL LIGHT IN REACH. WILL CONTINUE TO MONITOR .
[2018-06-07 19:48] VITALS: BP 121/66
[2018-06-07 21:29] LABS: URINE BILIRUBIN - DIPSTICK NEGATIVE (NEGATIVE); URINE BLOOD DIPSTICK NEGATIVE (NEGATIVE); URINE COLOR YELLOW; URINE GLUCOSE - DIPSTICK NEGATIVE (NEGATIVE); URINE KETONE NEGATIVE (NEGATIVE); URINE LEUK ESTERASE NEGATIVE (NEGATIVE); URINE NITRITE - DIPSTICK NEGATIVE (Negative); URINE PROTEIN - DIPSTICK NEGATIVE (NEG-TRACE); URINE SPECIFIC GRAVITY 1.025
[2018-06-07 21:30] LABS: URINE CLARITY CLEAR
[2018-06-08 00:03] VITALS: BP 118/63
--- NOTE | 2018-06-08 00:20 | NUR ---
PT RESTING IN BED AWAKE. RESP ARE EVEN AND UNLABORED. NO DISTRESS NOTED. CALL LIGHT IN REACH. WILL CONTINUE TO MONITOR
[2018-06-08 04:18] VITALS: BP 91/50
--- NOTE | 2018-06-08 04:21 | NUR ---
PT RESTING IN BED WITH EYES CLOSED. RESP ARE EVEN AND UNLABORED. NO DISTRESS NOTED. CALL LIGHT IN REACH. WILL CONTINUE TO MONITOR
[2018-06-08 05:11] LABS: HEMATOCRIT 25.8 % (39.0-50.0); HEMOGLOBIN 8.8 g/dl (14.0-18.0); MEAN CELL VOLUME 101.2 fL CALC (80.0-100.0); MEAN CORPUSCULAR HGB 34.5 pG CALC (26.0-32.0); MEAN CORPUSCULAR HGB CONC 34.1 g/L CALC (32.0-36.0); NEUT# 2.81 thou/uL (1.82-7.42); RED BLOOD COUNT 2.55 mill/uL (4.70-6.10); RED CELL DISTRI WIDTH 15.6 % (11.5-15.5)
[2018-06-08 05:22] LABS: ALBUMIN 2.1 g/dL (3.2-5.0); ALKALINE PHOSPHATASE 139 u/l (38-126); ANION GAP 7 (6-22 (CALC)); BILIRUBIN, TOTAL 1.3 mg/dL (0.0-1.4); BUN 14 mg/dL (9-20); BUN/CREATININE RATIO 23 (12-20 (CALC)); CARBON DIOXIDE 24 mmol/l (22-30); CHLORIDE 110 mmol/l (95-108); CREATININE 0.6 mg/dL (0.7-1.3); GFR > 60 ML/MIN (>=60 (CALC)); GFR FOR AFR.AMER. > 60 ML/MIN (>=60 (CALC)); MAGNESIUM 1.7 mg/dL (1.6-2.3); POTASSIUM 3.7 mmol/l (3.5-5.1); SGOT/AST 51 u/l (17-59); SODIUM 137 mmol/l (137-146); TOTAL PROTEIN 6.3 g/dL (6.3-8.2)
[2018-06-08 07:35] VITALS: BP 104/56
--- NOTE | 2018-06-08 07:35 | NUR ---
PT SITTING UP IN BED DOZING AROUSES EASILY TO VERBAL STIMULI; PT IS ALERT AND ORIENTED X3. AM ASSESSMENT COMPLETED AT THIS TIME; SEE INTERVENTIONS. OFFERS NO COMPLAINTS, BILATERAL LE CONTINUE TO HAVE COPIUS AMOUNTS SEROUS DRAINAGE FROM WOUNDS; FOOT CRADLE REMAINS IN PLACE FOR COMFORT; EDUCATED REGARDING DIET, ACCU CHECKS AND INSULIN COVERAGE WELL ALBUMIN AND BUMEX TO ATTEMPT TO DECREASE EDEMA IN LEGS AND AMOUNT OF WEEPING FROM EDEMA. PT VERBALIZES UNDERSTADNING, ABDOMEN SEEMS SLIGHTLY MORE DISTENDED THAN THIS NURSE NOTED YESTERDAY; TELE IN PLACE; PT NODS OFF DURING ASSESSMENT; CALL FONTANA WITHIN REACH; WILL CONTINUE TO MONITOR.
--- NOTE | 2018-06-08 09:15 | NUR ---
TOLERATD 100% OF AM MEAL W/O INCIDENT, INSULIN COVERAGE GIVEN EARLIER FOR ACCU CHECK ORDERED, TAKES PO MEDICATIONS W/O INCIDENT, EDUCATED REGARDING IV ABT SCHEDULE, WILL COTNINUE TO MONITOR.
--- NOTE | 2018-06-08 10:10 | NUR ---
PT COMPLAINING OF SEVERE PAIN TO LEGS, NOTIFIED.
--- NOTE | 2018-06-08 10:57 | NUR ---
SPOKE WITH PATIENT AT LENGTH REGARDING DIAGNOSIS, HEALING PROCESS (PT STATES HE HAS BEEN DEALING WITH HIS LEGS LIKE THIS FOR 3 YRS AND MINIMAL TO NO IMPROVEMENT) ALSO THE PROGNOSIS FOR CIRRHOSIS WITH ASCITES BEING POOR ETC..PT SEEMED UNAWARE OF THE POOR PROGNOSIS AND GENERAL DISCOMFORT THAT CAN ACOMPANY THE DX OF CIRRHOSIS, PT TEARY EYED AND CONTINUES TO COMPLAIN OF PAIN, AGAIN EDUCATED REGARDING DIFFICULTY WITH PAINMEDS RELATED TO LIVER DISEASE, CONTINUE TO AWAIT MD ON AM ROUNDS.
[2018-06-08 11:40] VITALS: BP 107/60
--- NOTE | 2018-06-08 13:28 | NUR ---
S: BRIANNE ESTRADA is a 53 M who presents with a foot injury. He has a history of diabetes, HTN, GERD, hernia, vertigo, CHF. All medications in patient's chart were reviewed. O: VS: BP 107/60, P 69, RR 16 ,T 96.5 W 83, HT 70'', Scr= 0.6,CrCl= 110.1 ml/min A: Blood culture pending P: Patient is on Vancomycin Change Vancomycin dose to 1 g IV Q 12 H. Vancomycin trough on 06/08/18 at 0925 was 20. Next dose scheduled for 2200 on 06/08/18. Next trough scheduled for 0930 on 06/10/18 Vancomycin goal trough is between 10-15 mcg/ml
--- NOTE | 2018-06-08 13:37 | NUR ---
PT OOB TO BSC, MINIMAL INCONTINENCE FO STOOL NOTED IN BED, CALL FONTANA WITHIN REACH, INSTRUCTED TO CALL FOR ANY NEEDED ASSISTANCE.
--- NOTE | 2018-06-08 14:56 | NUR ---
SPOKE WITH BERNARDA AT [facility], REGARDING DRESSING CHANGES.
[2018-06-08 16:18] VITALS: BP 129/63
--- NOTE | 2018-06-08 16:25 | NUR ---
KALTO STAT SHEETS APPLIED TO BLATERAL LE COVERED WITH KERLIX AND SECURED WITH MADHURI BANDAGES. PT TOLERATED WELL, CALL FONTANA WITHIN REACH.
--- NOTE | 2018-06-08 17:24 | NUR ---
PT MEDICATED WITH NEUROTNIN ORDERED AND INSULIN COVERAGE GIVEN PER PROTOCOL, CALL FONTANA WITHIN REACH
[2018-06-08 19:15] VITALS: BP 103/57
--- NOTE | 2018-06-08 19:15 | NUR ---
PT RESTING IN BED AWAKE. PT IS ALERT AND ORIENTED X3. SHIFT ASSESSMENT COMPLETED AT THIS TIME. IV PATENT X1. PLAN OF CARE REVIEWED WITH PATIENT. PT VERBALIZED UNDERSTANDING. CALL LIGHT IN REACH. WILL CONTINUE TO MONITOR.
--- NOTE | 2018-06-08 22:00 | NUR ---
PT ASKING FOR A SECOND SNACK. SNACK PROVIDED. INSTRUCTED PATIENT AGAIN ON DIABETES MANAGEMENT AND WOUND HEALING. WILL CONTINUE TO MONITOR.
[2018-06-09] VITALS (7 sets, daily range): BP systolic 95–130; BP diastolic 46–71
--- NOTE | 2018-06-09 00:19 | NUR ---
PT RESTING IN BED WITH EYES CLOSED. RESP ARE EVEN AND UNLABORED. NO DISTRESS NOTED. CALL LIGHT IN REACH. WILL CONTINUE TO MONITOR
--- NOTE | 2018-06-09 04:00 | NUR ---
PT RESTING IN BED WITH EYES CLOSED. PT MENTATION AND ALERTNESS SEEMS DIFFERENT SINCE BEGINNING OF SHIFT. ONCE AWAKE PT IS ALERT AND ORIENTED X3. PT QUICKLY FALLS BACK TO SLEEP. QUESTIONED PT IF THERE HAS BEEN ANY ADDITIONAL MEDICATION TAKEN THAT WAS NOT PRESCRIBED. PT DENIES. CALL LIGHT IN REACH. WILL CONTINUE TO MONITOR.
--- NOTE | 2018-06-09 07:31 | NUR ---
SHIFT CHANGE FROM JOHANNY, PT AWAKE ALERT AND ORIENTED, DRESSING TO LEGS CDI, IVF INFUSING, TELE MONITOR IN PLACE, CALL FONTANA IN REACH.
--- NOTE | 2018-06-09 11:29 | NUR ---
RELAXING IN BED, REQUESTING DRINKS/PUDDING, ADVISED BLOOD GLUCOSE WILL BE MEASURED BEFORE SNACK GIVEN, ALL NEEDS ADDRESSED, CALL FONTANA IN REACH.
--- NOTE | 2018-06-09 11:40 | NUR ---
PT REQUESTING TO SPEAK WITH CM ABOUT GOING TO HOSPICE, CM NOTIFIED AND ADDRESSED REQUEST.
--- NOTE | 2018-06-09 12:20 | NUR ---
PT JUST C/O BEING UNABLE TO BREATHE, DOES NOT SEEM TO BE IN ANY DISTRESS AT THIS TIME BUT STATED THIS CONDITION OCCURRED WHEN HE STARTED EATING MEAL, PLATE IS NOW EMPTY ON ASSESSMENT WHEN HE CALLED, ABD DISTENDED AND FIRM, WILL CONTINUE TO MONITOR.
--- NOTE | 2018-06-09 12:56 | NUR ---
DR HICKEY AT BEDSIDE TO DISCUSS POC.
--- NOTE | 2018-06-09 13:30 | NUR ---
CONSULTATION CALLED TO [facility] AT THIS TIME.
--- NOTE | 2018-06-09 15:47 | NUR ---
RESTING IN BED, CONTINUES TO C/O ABD DISCOMFORT, DR HICKEY IS AWARE OF CONDITION AND ADDRESSING AT THIS MOMENT, WILL CONTINUE.
--- NOTE | 2018-06-09 16:48 | NUR ---
ASSISTED TO BSC AND BACK TO BED, VERY WEAK, NEEDS ASSISTANCE, WILL CONTINUE TO MONITOR.
--- NOTE | 2018-06-09 18:21 | NUR ---
DR HOUSE ROUNDED, REMOVED DRESSINGS AND WROTE ORDERS, PICTURES TAKEN.
[2018-06-10 04:00] VITALS: BP 119/61
[2018-06-10 05:51] LABS: HEMATOCRIT 26.1 % (39.0-50.0); HEMOGLOBIN 8.8 g/dl (14.0-18.0); IMMATURE GRANULOCYTES 1.3 % (0.0-5.0); MEAN CELL VOLUME 100.8 fL CALC (80.0-100.0); MEAN CORPUSCULAR HGB CONC 33.7 g/L CALC (32.0-36.0); NEUT# 1.75 thou/uL (1.82-7.42); RED BLOOD COUNT 2.59 mill/uL (4.70-6.10); RED CELL DISTRI WIDTH 15.5 % (11.5-15.5)
[2018-06-10 06:04] LABS: ALBUMIN 2.2 g/dL (3.2-5.0); ALKALINE PHOSPHATASE 117 u/l (38-126); ANION GAP 8 (6-22 (CALC)); BILIRUBIN, TOTAL 1.1 mg/dL (0.0-1.4); BUN 14 mg/dL (9-20); BUN/CREATININE RATIO 22 (12-20 (CALC)); CARBON DIOXIDE 25 mmol/l (22-30); CHLORIDE 109 mmol/l (95-108); CREATININE 0.6 mg/dL (0.7-1.3); GFR > 60 ML/MIN (>=60 (CALC)); GFR FOR AFR.AMER. > 60 ML/MIN (>=60 (CALC)); MAGNESIUM 1.6 mg/dL (1.6-2.3); POTASSIUM 3.4 mmol/l (3.5-5.1); SGOT/AST 48 u/l (17-59); SODIUM 139 mmol/l (137-146); TOTAL PROTEIN 6.6 g/dL (6.3-8.2)
--- NOTE | 2018-06-10 07:48 | NUR ---
PT RECIEVING VANCO AND ZOSYN IV. NO S/S OF ADVERSE REACTIONS. PT C/O PAIN IN LOWER EXTREM. AND UNCONTROLLABLE ITCHING. BENADRYL AND MOTRIN GIVE. MEDICATIONS WERE EFFECTIVE. DRG ON EXTREM ARE CLEAN DRY AND INTACT.
[2018-06-10 08:22] VITALS: BP 111/63
--- NOTE | 2018-06-10 08:22 | NUR ---
PT RESTING IN BED WATCHING TV. PT ALERT AND ORIENTED X3. EDEMA TO BLE, DRESSINGS INTACT BILAT. DISCUSSED POC, PT NPO FOR PARACENTESIS AT 11:30, PT IN AGREEMENT. PT HAS A HARRIS OVER BLE FOR PROTECTION FROM SHEETS. ASSESSMENT COMPLETED AT THIS TIME. CALL LIGHT IN REACH,CONTINUE TO MONITOR.
[2018-06-10 09:45] LABS: INTERNATIONAL NORMALIZED RATIO 1.3 RATIO (0.7-1.3); PROTHROMBIN TIME 13.3 SECONDS (9.0-12.5)
--- NOTE | 2018-06-10 10:25 | NUR ---
VANCO TROUGH 17, VANCO INFUSION INITIATED. CALL LIGHT IN REACH,CONTINUE TO MONITOR.
[2018-06-10 12:30] VITALS: BP 115/65
--- NOTE | 2018-06-10 12:35 | NUR ---
IV VANCO INFUSION ON HOLD TO TAKE PT DOWN TO ULTRASOUND FOR PROCEDURE. PT TAKEN VIA WHEELCHAIR ACCOMPANIED BY STAFF. CONTINUE TO MONITOR.
--- NOTE | 2018-06-10 13:50 | NUR ---
PT RETURNED FROM PARACENTESIS. PT TRANSFERRED SELF FROM STRETCHER TO BED, NOTED DRAINAGE TO NEEDLE INSERTION SITE. GAUZE AND TEGADERM APPLIED. PT VOICES NO NEEDS OR COMPLAINTS. LUNCH PROVIDED. CALL LIGHT IN REACH,CONTINUE TO MONITOR.
--- NOTE | 2018-06-10 14:00 | NUR ---
HOSPICE ADMISSION NURSE AT BEDSIDE
[2018-06-10 16:00] VITALS: BP 119/75
--- NOTE | 2018-06-10 16:01 | NUR ---
S: BRIANNE ESTRADA is a 53 M who presents with a foot injury. He has a history of diabetes, HTN, GERD, hernia, vertigo, CHF All medications in patient's chart were reviewed. O: VS: BP 115/65, P 70, RR 16,T 97.6 W 83, HT 70'', Scr= 0.6 ,CrCl= 110.1 <ml/min> A: Blood culture pending. P: Continue Vancomycin 1 gm IV IV Q 12 H. Vancomycin trough is drawn before the dose on 06/14/18 at 0930 Vancomycin goal trough is between 10-15 mcg/ml Pharmacy will follow and or advise on antibiotics use as needed.
--- NOTE | 2018-06-10 17:42 | NUR ---
PT EATING DINNER, NO SIGNS OF DISTRESS NOTED, RESP EVEN AND UNLABORED. WINSOEM SCHROEDER. CALL LIGHT IN REACH,CONTINUE TO MONITOR.
[2018-06-10 19:59] VITALS: BP 131/71
--- NOTE | 2018-06-10 21:53 | NUR ---
PT RESTIN IN BED COMFORTABLY. PT ASSISTED WITH BATHING AT BEDSIDE. AOFRAN ADMIN FOR NAUSEA. BENADRYL FOR ITCHING AND BS COVERED PER SLIDING SCALE. PT TALKING TO JET HANDLER WITH NO S/S OF PAIN AT CURRENT TIME.
[2018-06-10 23:52] VITALS: BP 114/61
[2018-06-11 04:00] VITALS: BP 119/63
[2018-06-11 05:24] LABS: HEMATOCRIT 28.3 % (39.0-50.0); HEMOGLOBIN 9.4 g/dl (14.0-18.0); MEAN CELL VOLUME 102.2 fL CALC (80.0-100.0); MEAN CORPUSCULAR HGB 33.9 pG CALC (26.0-32.0); MEAN CORPUSCULAR HGB CONC 33.2 g/L CALC (32.0-36.0); NEUT# 2.54 thou/uL (1.82-7.42); RED BLOOD COUNT 2.77 mill/uL (4.70-6.10); RED CELL DISTRI WIDTH 15.6 % (11.5-15.5)
[2018-06-11 05:50] LABS: ALBUMIN 2.4 g/dL (3.2-5.0); ANION GAP 9 (6-22 (CALC)); BUN 13 mg/dL (9-20); BUN/CREATININE RATIO 21 (12-20 (CALC)); CARBON DIOXIDE 24 mmol/l (22-30); CHLORIDE 112 mmol/l (95-108); CREATININE 0.6 mg/dL (0.7-1.3); GFR > 60 ML/MIN (>=60 (CALC)); GFR FOR AFR.AMER. > 60 ML/MIN (>=60 (CALC)); MAGNESIUM 1.7 mg/dL (1.6-2.3); SODIUM 141 mmol/l (137-146)
[2018-06-11 06:22] LABS: POTASSIUM 4.3 mmol/l (3.5-5.1)
--- NOTE | 2018-06-11 07:00 | NUR ---
SHIFT CHANGE REPORT FROM EMPERATRIZ ROMERO AWAKE ALERT AND ORIENTED, TELE MONITOR IN PLACE, DRESSINGS TO LINDSAY LOWER EXT CDI, NO C/O PAIN AT THIS TIME, CALL FONTANA IN REACH.
[2018-06-11 09:45] VITALS: BP 122/74
[2018-06-11 11:24] VITALS: BP 129/81
--- NOTE | 2018-06-11 12:42 | NUR ---
HAVING MEAL, C/O PAIN TO LEGS, CONCERN ADDRESSED, WILL CONTINUE TO MONITOR.
--- NOTE | 2018-06-11 16:00 | NUR ---
DRESSINGS TO LEGS AFTER INFORMING PT OF PROCEDURE, TOLETATED PAINFULLY, PAIN CONCERNS ADDRESSED.
[2018-06-11 16:31] VITALS: BP 125/69
[2018-06-11 19:29] VITALS: BP 127/73
--- NOTE | 2018-06-11 19:44 | NUR ---
PT RESTING IN BED AWKAE. PT IS ALERT AND ORIENTED X3. SHIFT ASSESSMENT COMPLETED AT THIS TIME. IV PATENT X1. PLAN OF CARE REVIEWED WITH PATIENT. CALL MARCIO RIOS WILL CONTINUE TO MONITOR.
--- NOTE | 2018-06-11 19:58 | NUR ---
A WOMAN CALLED STATING SHE WAS FROM HOSPICE AND INQUIRING IF THE PLAN STILL WAS TO DC PATIENT ON WEDNESDAY TO HOSPICE. EXPLAINED THAT I WAS NOT AWARE OF THIS AND SHE SHOULD CALL TOMORROW AND SPEAK TO CASE MANAGEMENT OR NURSE PRACTITIONER.
[2018-06-12 00:07] VITALS: BP 127/70
--- NOTE | 2018-06-12 00:09 | NUR ---
PT RESTING IN BED WITH EYES CLOSED. RESP ARE EVEN AND UNLABORED. NO DISTRESS NOTED. CALL LIGHT IN REACH. WILL CONTINUE TO MONITOR.
--- NOTE | 2018-06-12 03:47 | NUR ---
PT RESTING IN BED WITH EYES CLOSED. RESP ARE EVEN AND UNLABORED. NO DISTRESS NOTED. CALL LIGHT IN REACH. WILL CONTINUE TO MONITOR.
[2018-06-12 04:17] VITALS: BP 126/66
--- NOTE | 2018-06-12 07:07 | NUR ---
PT LAYING IN BED AWAKE, ALERT ORIENTED X3, VERY TALKATIVE; RESP EVEN AND UNLABORED; WILL CONTINUE TO MONITOR.
[2018-06-12 07:12] VITALS: BP 115/61
--- NOTE | 2018-06-12 07:15 | NUR ---
ASSESSMENT COMPLETED; PT LAYING IN BED AWAKE; IV PATENT NS @10CC/HR, SITE APPEARS HEALTHY; TELE IN PLACE; DRESSING TO BLE CDI; PT ABLE TO MOVE ALL EXTREMITIES; PT SEEM VERY PLEASANT, VOICED NO CONCERNS; BED IN LOW LOCKED POSITION; CALL FONTANA IN REACH; WILL CONTINUE TO MONITOR.
--- NOTE | 2018-06-12 08:47 | NUR ---
PT SITTING UP IN BED; MEDICATED PER EMAR.
--- NOTE | 2018-06-12 09:45 | NUR ---
PT SITTING UP IN W/C TAKING A BATH; MEDICATED PER EMAR. NO S/S OF DISTRESS NOTED. WILL CONTINUE TO MONITOR.
[2018-06-12 11:39] VITALS: BP 141/72
--- NOTE | 2018-06-12 12:01 | NUR ---
PT SITTING UP IN BED EATING LUNCH, NO S/S OF DISTRESS NOTED; WILL CONTINUE TO MONITOR.
--- NOTE | 2018-06-12 13:16 | NUR ---
DR GALEANA AND RUI HILARIO, AT BED SIDE TO DISCUSS POC.
[2018-06-12 15:20] VITALS: BP 111/64
--- NOTE | 2018-06-12 15:37 | NUR ---
PT LAYING IN BED TALKING ON THE PHONE, NO S/S OF DISTRESS NOTED; WILL CONTINUE TO MONITOR.
--- NOTE | 2018-06-12 16:08 | NUR ---
ASSISSTED PT TO BSC. CALL FONTANA IN REACH.
--- NOTE | 2018-06-12 17:31 | NUR ---
PT SITTING UP IN BED EATING SUPPER; IV FLUIDS FLOWING WITH EASE; CALL FONTANA IN REACH.
[2018-06-12 18:54] VITALS: BP 130/68
--- NOTE | 2018-06-12 23:10 | NUR ---
PT RESTING IN BED. PAIN ADDRESSED NEEDED. MEDS TOLERATED WELL. PT CONTINUES ON ABX FOR CELLULITIS. NO ADVERSE REACTIONS. BS COVERED PER PROTOCOL.
--- NOTE | 2018-06-12 23:52 | NUR ---
pt sitting in wheelchair. no pain complaints voiced.
[2018-06-13 00:24] VITALS: BP 133/73
[2018-06-13 04:31] VITALS: BP 121/64
[2018-06-13 06:11] LABS: HEMATOCRIT 26.5 % (39.0-50.0); HEMOGLOBIN 8.9 g/dl (14.0-18.0); IMMATURE GRANULOCYTES 2.2 % (0.0-5.0); MEAN CELL VOLUME 101.9 fL CALC (80.0-100.0); MEAN CORPUSCULAR HGB 34.2 pG CALC (26.0-32.0); MEAN CORPUSCULAR HGB CONC 33.6 g/L CALC (32.0-36.0); NEUT# 2.03 thou/uL (1.82-7.42); RED BLOOD COUNT 2.6 mill/uL (4.70-6.10); RED CELL DISTRI WIDTH 15.6 % (11.5-15.5)
[2018-06-13 06:26] LABS: ANION GAP 7 (6-22 (CALC)); BUN 13 mg/dL (9-20); BUN/CREATININE RATIO 18 (12-20 (CALC)); CARBON DIOXIDE 26 mmol/l (22-30); CHLORIDE 109 mmol/l (95-108); CREATININE 0.7 mg/dL (0.7-1.3); GFR > 60 ML/MIN (>=60 (CALC)); GFR FOR AFR.AMER. > 60 ML/MIN (>=60 (CALC)); MAGNESIUM 1.8 mg/dL (1.6-2.3); POTASSIUM 4.2 mmol/l (3.5-5.1); SODIUM 137 mmol/l (137-146)
--- NOTE | 2018-06-13 07:17 | NUR ---
REPORT RECEIVED; PT SITTING UP IN BED EATING BREAKFAST; A/OX3; NO S/S OF DISTRESS NOTED WILL CONTINUE TO MONITOR.
[2018-06-13 07:46] VITALS: BP 116/60
--- NOTE | 2018-06-13 07:50 | NUR ---
SHIFT ASSESSMENT COMLETED; IV PATENT X1 NS INFUSING @10CC/HR; SITE APPEARS HEALTHY; ABD DISTENTED; DRESSING TO BILAT LEGS CDI; TELE IN PLACE; CALL LIGHT AND URINAL IN REACH; WILL CONTINUE TO MONITOR.
--- NOTE | 2018-06-13 09:28 | NUR ---
MEDICATED PER EMAR; PT SITING UP IN BED WATCHING TV; PT VOICED NO CONCERNS. WILL CONTINUE TO MONITOR.
--- NOTE | 2018-06-13 10:59 | NUR ---
assisted pt to the recliner, medicated with roxicodine for pain 01/30; no distress noted. will continue to monitor.
--- NOTE | 2018-06-13 11:04 | NUR ---
JOANNE FROM [facility] CALLED INQUIRING IF PT WILL BE DC TODAY TOLD JOANNE WAITING FOR 'S PLAN OF CARE.
--- NOTE | 2018-06-13 11:26 | NUR ---
DR HICKEY AND IDALIA FABIAN AT BED SIDE TO DISCUSS POC.
[2018-06-13 11:36] VITALS: BP 113/67
--- NOTE | 2018-06-13 12:31 | NUR ---
PT CONTINUES SITTING UP IN W/C WITH LEGS ELEVATED, WATCHING TV; ATE 100% OF LUNCH; NO S/S OF DISTRESS NOTED. WILL CONTINUE TO MONITOR.
--- NOTE | 2018-06-13 14:10 | NUR ---
PT SITTING UP IN W/C TALKING ON HIS CELL PHONE; RESP EVEN AND UNLABORED. TELE IN PLACE; WILL CONTNUE TO MONITOR.
--- NOTE | 2018-06-13 14:18 | NUR ---
ASSISTED PT TO BE BSC, CALL FONTANA AND URINAL IN REACH.
--- NOTE | 2018-06-13 14:56 | NUR ---
ANDREA NURSE AT BED SIDE
--- NOTE | 2018-06-13 15:30 | NUR ---
PT EDUCATED ON DRESSING CHANGE TO BILAT LEGS, TOLERATED WELL. LLE MILD BLOODY DRAINAGE NOTED. PT VOICED NO CONCERNS. WILL CONTINUE TO MONITOR.
--- NOTE | 2018-06-13 16:05 | NUR ---
PT LAYING IN BED TALKING TO TIDEWEL; RESP EVEN AND UNLABORED; WILL CONTINUE TO MONITOR.
[2018-06-13 16:22] VITALS: BP 133/74
[2018-06-13] MEDS ORDERED: OXYCODONE5 M1 PO (18:39)
--- NOTE | 2018-06-13 19:30 | NUR ---
Discharge instructions given. Patient verbalizes understanding of same. Patient awaiting for sister for drive told patient to call if he needs help.
== END 2018-06-13 19:45 | disposition home or self-care (01) | DRG 433 ==
LOC: ED 07:57 → ED-I 09:10 → ED 09:28 → MS2 09:29
PROVIDERS: Family Medicine; Nurse Practitioner Adult Health; Nurse Practitioner Family; ADMIT Internal Medicine Nephrology; ATTEND Internal Medicine Nephrology
PROC: 0W9G3ZZ Drainage of Peritoneal Cavity, Percutaneous Approach (ICD-10-PCS; principal; 2018-06-09)
DX: K70.31 Alcoholic cirrhosis of liver with ascites (principal); L03.116 Cellulitis of left lower limb; K76.6 Portal hypertension; E11.622 Type 2 diabetes mellitus with other skin ulcer; L97.829 Non-pressure chronic ulcer of other part of left lower leg with unspecified severity; L97.818 Non-pressure chronic ulcer of other part of right lower leg with other specified severity; E11.51 Type 2 diabetes mellitus with diabetic peripheral angiopathy without gangrene; D61.818 Other pancytopenia; E46 Unspecified protein-calorie malnutrition; L03.115 Cellulitis of right lower limb; I11.0 Hypertensive heart disease with heart failure; I50.9 Heart failure, unspecified; B19.20 Unspecified viral hepatitis C without hepatic coma; G25.81 Restless legs syndrome; E11.42 Type 2 diabetes mellitus with diabetic polyneuropathy; E88.09 Other disorders of plasma-protein metabolism, not elsewhere classified; Z87.891 Personal history of nicotine dependence; Z79.4 Long term (current) use of insulin; Z91.19 Patient's noncompliance with other medical treatment and regimen; Z68.26 Body mass index [BMI] 26.0-26.9, adult
CPT/HCPCS: P9047

== ENCOUNTER 2018-06-14 19:05 | Emergency (ER) | payer OTHER ==
[~2018-06-14] VITALS: Ht 177.8 cm; Wt 83.0 kg
[~2018-06-14 19:05] MED LIST changes: +OXYCODONE5 M1 PO
[2018-06-14 20:11] LABS: HEMATOCRIT 28.1 % (39.0-50.0); HEMOGLOBIN 9.4 g/dl (14.0-18.0); IMMATURE GRANULOCYTES 2.7 % (0.0-5.0); MEAN CELL VOLUME 103.3 fL CALC (80.0-100.0); MEAN CORPUSCULAR HGB 34.6 pG CALC (26.0-32.0); MEAN CORPUSCULAR HGB CONC 33.5 g/L CALC (32.0-36.0); NEUT# 2.46 thou/uL (1.82-7.42); RED BLOOD COUNT 2.72 mill/uL (4.70-6.10); RED CELL DISTRI WIDTH 15.9 % (11.5-15.5)
[2018-06-14 20:17] LABS: ALBUMIN 2.3 g/dL (3.2-5.0); ALKALINE PHOSPHATASE 181 u/l (38-126); ANION GAP 8 (6-22 (CALC)); BILIRUBIN, TOTAL 0.9 mg/dL (0.0-1.4); BUN 11 mg/dL (9-20); BUN/CREATININE RATIO 18 (12-20 (CALC)); CARBON DIOXIDE 26 mmol/l (22-30); CHLORIDE 109 mmol/l (95-108); CREATININE 0.6 mg/dL (0.7-1.3); GFR > 60 ML/MIN (>=60 (CALC)); GFR FOR AFR.AMER. > 60 ML/MIN (>=60 (CALC)); POTASSIUM 4.2 mmol/l (3.5-5.1); SGOT/AST 74 u/l (17-59); SODIUM 139 mmol/l (137-146)
[2018-06-14 20:23] LABS: ACT PARTIAL THROMBO TIME 33.8 SECONDS (20.0-32.5); INTERNATIONAL NORMALIZED RATIO 1.3 RATIO (0.7-1.3)
[2018-06-14 21:00] VITALS: BP 122/61
== END 2018-06-14 21:00 | disposition home or self-care (01) ==
LOC: ED 19:05
PROVIDERS: Emergency Medicine
DX: K74.60 Unspecified cirrhosis of liver (principal); R60.9 Edema, unspecified; E11.51 Type 2 diabetes mellitus with diabetic peripheral angiopathy without gangrene; D64.9 Anemia, unspecified; I11.0 Hypertensive heart disease with heart failure; I50.9 Heart failure, unspecified; K21.9 Gastro-esophageal reflux disease without esophagitis; B19.20 Unspecified viral hepatitis C without hepatic coma; R53.1 Weakness; R42 Dizziness and giddiness; R14.0 Abdominal distension (gaseous)